=== PATIENT | male | born 1985 | race Caucasian/White ===

== ENCOUNTER 2016-06-23 19:15 | Emergency (ER) | payer OTHER ==
--- NOTE | 2016-06-23 19:26 | PDOC ---
History of Present Illness - General History Source: Patient Exam Limitations: No Limitations - History of Present Illness Initial Comments: 06/23/16 19:32 The patient is a 30 year old male, with no significant past medical history who presents to the emergency department with left first digit numbness/tingling for about a week. He reports today developing sharp pain going down his 1st digit that has been constant throughout the entire day. The patient reports being arrested on 06/13, and being put into handcuff. He reports just after his release becoming symptomatic, having constant numbness/tingling in his 1st left digit. He denies any recent fevers, chills, headache or dizziness. He denies any recent nausea, vomit, diarrhea or constipation. Allergies: NKA Past surgical history: None reported. <Luis Enrique Machuca - Last Filed: 06/23/16 19:36> <Vandana Pizarro - Last Filed: 06/24/16 02:10> - General Chief Complaint: Head/Neck problem Stated Complaint: L 1ST DIGIT NUMBNESS S/P HAND CUFFS Past History <Luis Enrique Machuca - Last Filed: 06/23/16 19:36> - Psycho/Social/Smoking Cessation Hx Anxiety: No Suicidal Ideation: No Smoking History: Unknown if ever smoked Have you smoked in the past 12 months: No Number of Cigarettes Smoked Daily: 0 Information on smoking cessation initiated: No Hx Alcohol Use: No Drug/Substance Use Hx: No Substance Use Type: None <Vandana Pizarro - Last Filed: 06/24/16 02:10> - Past Medical History Allergies/Adverse Reactions: Allergies Allergy/AdvReac Type Severity Reaction Status Date / Time No Known Allergies Allergy Unverified 06/23/16 19:25 Home Medications: Ambulatory Orders NK [No Known Home Medication] 06/23/16 Review of Systems - Review of Systems Able to Perform ROS?: Yes Comments:: 06/23/16 19:32 GENERAL/CONSTITUTIONAL: No fever or chills. No weakness. HEAD, EYES, EARS, NOSE AND THROAT: No change in vision. No ear pain or discharge. No sore throat. CARDIOVASCULAR: No chest pain or shortness of breath. RESPIRATORY: No cough, wheezing, or hemoptysis. GASTROINTESTINAL: No nausea, vomiting, diarrhea or constipation. GENITOURINARY: No dysuria, frequency, or change in urination. MUSCULOSKELETAL: +finger numbness. No joint or muscle swelling or pain. No neck or back pain. SKIN: No rash NEUROLOGIC: No headache, vertigo, loss of consciousness, or change in strength/ sensation. ENDOCRINE: No increased thirst. No abnormal weight change. HEMATOLOGIC/LYMPHATIC: No anemia, easy bleeding, or history of blood clots. ALLERGIC/IMMUNOLOGIC: No hives or skin allergy. <Luis Enrique Machuca - Last Filed: 06/23/16 19:36> *Physical Exam - Vital Signs Last Vital Signs Temp Pulse Resp BP Pulse Ox 97.8 F 88 14 118/76 100 06/23/16 19:18 06/23/16 19:18 06/23/16 19:18 06/23/16 19:18 06/23/16 19:18 <Luis Enrique Machuca - Last Filed: 06/23/16 19:36> - Vital Signs Last Vital Signs Temp Pulse Resp BP Pulse Ox 97.8 F 88 14 118/76 100 06/23/16 19:18 06/23/16 19:18 06/23/16 19:18 06/23/16 19:18 06/23/16 19:18 - Physical Exam Comments: GENERAL: Awake, alert, and fully oriented, in no acute distress HEAD: No signs of trauma EXTREMITIES: Normal range of motion, no edema. No clubbing or cyanosis. No cords, erythema, or tenderness. Cap refill <2 seconds. L hand with no bony tenderness to the bones of the wrist or hand. NEUROLOGICAL: Cranial nerves II through XII grossly intact. Normal speech, normal gait. Strength intact throughout. Decreased sensation to pinprick to the lateral surface of the L thumb. Motor intact. Sensation to the medial surface intact. SKIN: Warm, Dry, normal turgor, no rashes or lesions noted. <Vandana Pizarro - Last Filed: 06/24/16 02:10> Medical Decision Making - Medical Decision Making Pt noted to have dec sensation to the lateral part of the thumb. No signs of vascular compromise. Counseled him that this is likely temporary, and that it will take time to heal, as peripheral nerves heal slowly. There are no signs of bony injury. No imaging indicated at this time. F/u with PMD as needed. <Vandana Pizarro - Last Filed: 06/24/16 02:10> *DC/Admit/Observation/Transfer - Attestations Scribe Attestion: 06/23/16 19:35 Documentation prepared by Luis Enrique Mahcuca, acting as medical secretary receptionist for Vandana Pizarro MD. <Luis Enrique Machuca - Last Filed: 06/23/16 19:36> - Discharge Dispostion Admit: No <Vandana Pizarro - Last Filed: 06/24/16 02:10> Diagnosis at time of Disposition: Paresthesias in left hand - Discharge Dispostion Disposition: HOME Condition at time of disposition: Stable - Referrals Referrals: STAFF,NOT ON [Primary Care Provider] - - Patient Instructions Printed Discharge Instructions: DI for Numbness/tingling
[2016-06-23 19:33] VITALS: BP 118/76; PULSE 88; TEMP 97.8; BMI 40.6
== END 2016-06-23 19:42 | disposition home or self-care (01) ==
LOC: FER 19:15
DX: R20.9 Unspecified disturbances of skin sensation (principal); Y35.893A Legal intervention involving other specified means, suspect injured, initial encounter; Y93.9 Activity, unspecified; Y92.9 Unspecified place or not applicable
CPT/HCPCS: 99282-25

== ENCOUNTER 2016-12-08 16:14 | Inpatient (IN) | payer OTHER ==
[2016-12-08] MEDS ORDERED: SODIUM CHLORIDE 1,000 ML IV STA (16:21)
[2016-12-08] MEDS ORDERED: ONDANSETRON 4 MG/2 ML VIAL IVPB ONE (16:37)
[2016-12-08] MEDS ORDERED: morphine CARPU-JECT 4 MG/1 ML DISP.SYRIN IVPUSH ONE (16:37)
--- NOTE | 2016-12-08 16:38 | PDOC ---
History of Present Illness - History of Present Illness Initial Comments: 12/08/16 17:17 The patient is a 31 year old male, with a significant past medical history of pancreatitis, who presents to the emergency department complaining of epigastric pain that began 30 minutes ago. Patient states that he first started to experience back pain while lying down at work and then his epigastric pain developed soon thereafter. Patient describes his abdominal pain as a cramping/ squeezing feeling and rates his pain 7/10. Patient states he has had this pain before when he was admitted to the hospital for pancreatitis 2 years ago. Patient states associated symptoms of nausea and SOB. He denies any recent fevers, chills, headache or dizziness. He denies any recent vomit, diarrhea or constipation. He denies any recent chest pain. He denies any recent dysuria, frequency, urgency or hematuria. Denies past surgeries. Gall bladder intact Allergies: NKA Past surgical history: None reported. Social History: Nonsmoker. Social drinker. Denies recreational drug use. Primary Care Physician: Not on staff <Imelda Bello - Last Filed: 12/08/16 17:24> - General History Source: Patient Exam Limitations: No Limitations <Kelsy Dumont - Last Filed: 12/10/16 08:50> - General Chief Complaint: Pain, Acute Stated Complaint: UPPER ABD AND UPPER ABCK PAIN Time Seen by Provider: 12/08/16 16:20 Past History <Imelda Bello - Last Filed: 12/08/16 17:24> - Suicide/Smoking/Psychosocial Hx Smoking History: Unknown if ever smoked Have you smoked in the past 12 months: No Number of Cigarettes Smoked Daily: 0 Hx Alcohol Use: No Drug/Substance Use Hx: No Substance Use Type: None <Kelsy Dumont - Last Filed: 12/10/16 08:50> - Past Medical History Allergies/Adverse Reactions: Allergies Allergy/AdvReac Type Severity Reaction Status Date / Time No Known Allergies Allergy Unverified 06/23/16 19:25 Home Medications: Ambulatory Orders Non-Formulary 3 tab PO BID MDD 6 12/08/16 Review of Systems - Review of Systems Comments:: 12/08/16 17:18 GENERAL/CONSTITUTIONAL: No: fever, chills, weakness, loss of appetite. HEAD, EYES, EARS, NOSE AND THROAT: No: change in vision, ear pain, discharge, sore throat, throat swelling. CARDIOVASCULAR: No: chest pain, lightheadedness, palpitations, syncope RESPIRATORY: +shortness of breath No: cough,wheezing, hemoptysis, stridor. GASTROINTESTINAL: + epigastric tenderness to palpation, +nausea, +abdominal cramping, No: vomiting diarrhea, rectal bleeding, constipation. GENITOURINARY: No: dysuria, hematuria, frequency, urgency, flank pain. MUSCULOSKELETAL: + back pain. No: neck pain, joint pain, muscle swelling or pain SKIN AND BREASTS: No: lesions, pallor, rash or easy bruising. NEUROLOGIC: No: headache, vertigo, paresthesias, weakness ENDOCRINE: No: unexplained weight gain or loss HEMATOLOGIC/LYMPHATIC: No: anemia, easy bleeding, swelling nodes <Imelda Bello - Last Filed: 12/08/16 17:24> *Physical Exam - Physical Exam Comments: 12/08/16 17:24 GENERAL: The patient is in no acute distress. HEAD: Normal with no signs of trauma. EYES: PERRLA, EOMI, sclera anicteric, conjunctiva clear. ENT: Ears normal, nares patent, oropharynx clear without exudates. Moist mucous membranes. NECK: Normal range of motion, supple without lymphadenopathy, JVD, or masses. LUNGS: Breath sounds equal, clear to auscultation bilaterally. No wheezes, and no crackles. HEART:Regular rate and rhythm, normal S1 and S2 without murmur, rub or gallop. ABDOMEN: +Epigastric tenderness to palpation. No lower abdominal tenderness. No guarding, no rebound. EXTREMITIES: Normal range of motion, no edema. No clubbing or cyanosis. No erythema, or tenderness. NEUROLOGICAL: Cranial nerves II through XII grossly intact. Normal speech. No focal neurological deficits. MUSCULOSKELETAL: Back non-tender to palpation, no CVA tenderness SKIN: Warm, Dry, normal turgor, no rashes or lesions noted. <Imelda Bello - Last Filed: 12/08/16 17:24> ED Treatment Course - LABORATORY CBC & Chemistry Diagram: 12/08/16 16:33 12/08/16 16:33 - ADDITIONAL ORDERS Additional order review: 12/08/16 16:33 RBC 5.27 MCV 85.1 MCHC 34.6 RDW 12.0 MPV 9.1 Neutrophils % 47.6 Lymphocytes % 41.7 H Monocytes % 6.5 Eosinophils % 3.8 Basophils % 0.4 - Medications Given in the ED: ED Medications Discontinued Medications Generic Name Dose Route Start Last Admin Trade Name Alex PRN Reason Stop Dose Admin Morphine Sulfate 4 mg 12/08/16 16:37 12/08/16 16:55 Morphine Injection - IVPUSH 12/08/16 16:38 4 mg ONCE ONE Administration Ondansetron HCl 4 mg 12/08/16 16:37 12/08/16 16:55 Zofran Injection IVPB 12/08/16 16:38 4 mg ONCE ONE Administration <Imelda Bello - Last Filed: 12/08/16 17:24> - LABORATORY CBC & Chemistry Diagram: 12/10/16 07:00 12/10/16 07:00 <Kelsy Dumont - Last Filed: 12/10/16 08:50> Medical Decision Making - Medical Decision Making 12/08/16 16:48 THis patient is a 31 yo M presenting to the ER with upper abdominal pain HE states his symptoms began 30 minutes prior to arrival in the ER Symptoms began in his back Pain described as squeezing No vomiting No diarrhea Pain occurred while seated at his desk No fevers or chills Pt states he believes this to be pancreatitis because he had these symptoms in the past, 2 years ago He was told that he had pancreatitis He is not sure the cause of the pancreatitis (Was told that he needed to lose some weight) Pt denies heavy alcohol use, he denies being told that he has an issue with his gall bladder DD: Gastritis, Pancreatits, Biliary colic Will do: Labs, Hydrate Will re assess 12/08/16 17:10 Laboratory Tests 12/08/16 16:33 WBC 7.0 Hgb 15.5 Hct 44.8 Plt Count 256 Neutrophils % 47.6 Lymphocytes % 41.7 H 12/08/16 17:32 Laboratory Tests 12/08/16 16:33 Sodium 137 Potassium 4.1 Chloride 106 Carbon Dioxide 28 BUN 15 Creatinine 0.9 Random Glucose 103 Total Bilirubin 0.7 AST 46 H ALT 68 H Total Amylase 845 H* Lipase 1650 H Case reviewed with the hospitalist service Will: Admit Switch to LR Pt requesting more pain medications - will give Dilaudid Will send for CT scan to determine the etiology of his pancreatitis <Kelsy Dumont - Last Filed: 12/10/16 08:50> *DC/Admit/Observation/Transfer - Attestations Scribe Attestion: 12/08/16 17:25 Documentation prepared by Imelda Bello, acting as internist medical doctor md for Kelsy Dumont MD. <Imelda Bello - Last Filed: 12/08/16 17:24> - Discharge Dispostion Admit: Yes <Kelsy Dumont - Last Filed: 12/10/16 08:50> Diagnosis at time of Disposition: Pancreatitis Qualifiers: Chronicity: acute Pancreatitis type: unspecified pancreatitis type Acute pancreatitis complication: unspecified Qualified Code(s): K85.90 - Acute pancreatitis without necrosis or infection, unspecified - Discharge Dispostion Condition at time of disposition: Fair
[2016-12-08] MEDS ORDERED: morphine CARPU-JECT 4 MG/1 ML DISP.SYRIN ONE (16:50)
[2016-12-08] MEDS ORDERED: ONDANSETRON 4 MG/2 ML VIAL ONE (16:50)
[2016-12-08 16:59] LABS: ALBUMIN 4.1 g/dl (3.5-5.0); ALK PHOS 68 U/L (32-92); ANION GAP 3 (8-16); BILIRUBIN,TOTAL 0.7 mg/dl (0.2-1.0); CALCIUM 9.1 mg/dl (8.4-10.2); CO2 28 mmol/L (22-28); CREATININE 0.9 mg/dl (0.6-1.3); GLUCOSE,RANDOM 103 mg/dl (74-106); SGOT/AST 46 U/L (10-42); SGPT/ALT 68 U/L (10-40)
[2016-12-08 17:07] LABS: BASOPHIL 0.4 % (0-2.0); EOSINOPHIL 3.8 % (0-4.5); MCH 29.5 pg (25.7-33.7); MCHC 34.6 g/dl (32.0-35.9); MEAN CELL VOLUME 85.1 fl (80-96); MEAN PLT VOLUME 9.1 fl (7.5-11.1); NEUTROPHILS 47.6 % (42.8-82.8); PLATELET COUNT 256 K/MM3 (134-434)
[2016-12-08 17:23] LABS: AMYLASE 845 U/L (25-125)
[2016-12-08] MEDS ORDERED: HYDROmorphone HCL CARPU-JECT 1 MG/1 ML DISP.SYRIN IVPB ONE (17:26)
[2016-12-08] MEDS ORDERED: LACTATED RINGERS SOLUTION 1,000 ML IV SCH (17:30)
[2016-12-08] MEDS ORDERED: HYDROmorphone HCL CARPU-JECT 1 MG/1 ML DISP.SYRIN ONE (17:39)
[2016-12-08 19:06] VITALS: BMI 31.6
[2016-12-08] MEDS: ONDANSETRON 4 MG/2 ML VIAL IVPB PRN (21:32)
[2016-12-08] MEDS: HYDROmorphone HCL CARPU-JECT 1 MG/1 ML DISP.SYRIN IVPUSH PRN (21:32)
--- NOTE | 2016-12-08 21:41 | HP ---
CHIEF COMPLAINT: Abdominal pain PCP: none HISTORY OF PRESENT ILLNESS: This is a 31 year old male with a past medical history of pancreatitis 2 years ago presented to the emergency department with abdominal pain for 30 min [employer]. He reports the pain began in his mid/upper back and radiated to his epigastric region. The pain is similar to his pain during his previous episode of pancreatitis. He states that they were unable to find a definitive cause of the pancreatitis. He denies habitual or excessive alcohol use. ER course was notable for: (1) Lipase 1650 (2) WBC 7.0 (3) CT c/w pancreatitis Recent Travel: pt denies PAST MEDICAL HISTORY: pancreatitis PAST SURGICAL HISTORY: pt deneis Social History: Smoking: pt denies Alcohol: couple drinks a few times/week, last on Tuesday Drugs: pt denies Family History: mother, father 2 brothers, 4 sisters and 5 children all alive and well, no PMH Mat grandmother with HTN Allergies No Known Allergies Allergy (Unverified 06/23/16 19:25) HOME MEDICATIONS: 3 Medication Instructions Recorded Hydroxycut 3 tab PO BID MDD 6 12/08/16 REVIEW OF SYSTEMS CONSTITUTIONAL: Absent: fever, chills, diaphoresis, generalized weakness, malaise, loss of appetite, weight change HEENT: Absent: rhinorrhea, nasal congestion, throat pain, throat swelling, difficulty swallowing, mouth swelling, ear pain, eye pain, visual changes CARDIOVASCULAR: Absent: chest pain, syncope, palpitations, irregular heart rate, lightheadedness , peripheral edema RESPIRATORY: Absent: cough, shortness of breath, dyspnea with exertion, orthopnea, wheezing, stridor, hemoptysis GASTROINTESTINAL: abdominal pain Absent: abdominal distension, nausea, vomiting, diarrhea, constipation, melena, hematochezia GENITOURINARY: Absent: dysuria, frequency, urgency, hesitancy, hematuria, flank pain, genital pain MUSCULOSKELETAL: Absent: myalgia, arthralgia, joint swelling, back pain, neck pain SKIN: Absent: rash, itching, pallor HEMATOLOGIC/IMMUNOLOGIC: Absent: easy bleeding, easy bruising, lymphadenopathy, frequent infections ENDOCRINE: Absent: unexplained weight gain, unexplained weight loss, heat intolerance, cold intolerance NEUROLOGIC: Absent: headache, focal weakness or paresthesias, dizziness, unsteady gait, seizure, mental status changes, bladder or bowel incontinence PSYCHIATRIC: Absent: anxiety, depression, suicidal or homicidal ideation, hallucinations. PHYSICAL EXAMINATION Vital Signs - 24 hr 3 12/08/16 12/08/16 12/08/16 18:48 19:00 21:00 Temperature 97.9 F 97.5 F L Pulse Rate 65 68 Respiratory 17 17 17 Rate Blood Pressure 114/60 114/60 O2 Sat by Pulse 100 100 Oximetry (%) GENERAL: Awake, alert, and fully oriented, in no acute distress. HEAD: Normal with no signs of trauma. EYES: Pupils equal, round and reactive to light, extraocular movements intact, sclera anicteric, conjunctiva clear. No lid lag. EARS, NOSE, THROAT: Ears normal, nares patent, oropharynx clear without exudates. Moist mucous membranes. NECK: Normal range of motion, supple without lymphadenopathy, JVD, or masses. LUNGS: Breath sounds equal, clear to auscultation bilaterally. No wheezes, and no crackles. No accessory muscle use. HEART: Regular rate and rhythm, normal S1 and S2 without murmur, rub or gallop. ABDOMEN: Soft, not distended, normoactive bowel sounds, no guarding, no rebound , no masses. No hepatomegaly or splenomegaly. Tender to palpation epigastric MUSCULOSKELETAL: Normal range of motion at all joints. No bony deformities or tenderness. No CVA tenderness. UPPER EXTREMITIES: 2+ pulses, warm, well-perfused. No cyanosis. No clubbing. No peripheral edema. LOWER EXTREMITIES: 2+ pulses, warm, well-perfused. No calf tenderness. No peripheral edema. NEUROLOGICAL: Cranial nerves II-XII intact. Normal speech. Normal gait. PSYCHIATRIC: Cooperative. Good eye contact. Appropriate mood and affect. SKIN: Warm, dry, normal turgor, no rashes or lesions noted, normal capillary refill. Laboratory Results - last 24 hr 3 12/08/16 12/08/16 16:33 16:33 WBC 7.0 RBC 5.27 Hgb 15.5 Hct 44.8 MCV 85.1 MCH 29.5 MCHC 34.6 RDW 12.0 Plt Count 256 MPV 9.1 Neutrophils % 47.6 Lymphocytes % 41.7 H Monocytes % 6.5 Eosinophils % 3.8 Basophils % 0.4 Sodium 137 Potassium 4.1 Chloride 106 Carbon Dioxide 28 Anion Gap 3 L BUN 15 Creatinine 0.9 Creat Clearance w eGFR > 60 Random Glucose 103 Calcium 9.1 Total Bilirubin 0.7 AST 46 H ALT 68 H Alkaline Phosphatase 68 Total Protein 7.0 Albumin 4.1 Total Amylase 845 H* Lipase 1650 H Radiology Results Abdomen and pelvic CT (with contrast) Clinical information: pancreatitis Multiplanar imaging was performed following the intravenous administration of nonionic contrast. Oral contrast was not administered. No prior imaging studies are available at this facility for direct comparison. Peripancreatic edema and fluid accumulation is noted consistent with known acute pancreatitis. There is also associated mild concentric edema and fluid accumulation surrounding the second portion of duodenal sweep. The main pancreatic duct appears slightly dilated measuring 0.3 cm at the level of the body and 0.2 cm within the tail. No obvious ductal dilatation is noted in the region of the pancreatic head. There is no obvious radiopaque intraductal calcification. No biliary tract dilatation is visualized. There is a possible subtle 1 cm cyst within the pancreatic tail (transaxial images 49 - 51). No CT evidence of pancreatic necrosis. The portal venous system and splenic vein appear patent. There is no evidence of pneumoperitoneum, free intraperitoneal fluid or bowel obstruction. Diffuse fatty infiltration of the liver is noted. The spleen appears borderline in size. No focal splenic pathology is seen. The gallbladder, adrenal glands and kidneys demonstrate no definite abnormality. There is no aortic aneurysm. The appendix appears unremarkable. No gross bowel pathology is noted. There is no discrete lymphadenopathy. There is no definite pelvic abnormality. Minimal left basilar discoid atelectasis. IMPRESSION: Acute pancreatitis is identified as discussed above. No CT evidence of pancreatic necrosis. There is apparent slight nonspecific dilatation of the main pancreatic duct at the level of the body and tail. A possible subtle 1 cm pancreatic tail cyst is noted. Correlation with contrast-enhanced MRI is suggested. There is no CT evidence of biliary tract pathology. Diffuse hepatic steatosis is seen. Reported By: Darion Buckley MD 12/08/16 194 Chest portable one view Clinical information: pre-admission exam No discrete infiltrate or pleural effusion is identified. The heart, dayami and mediastinum demonstrate no obvious abnormality. Impression: No definite radiographic abnormality is seen. Reported By: Darion Buckley MD 12/08/161923 ASSESSMENT/PLAN: 31yM with PMH pancreatitis presented to the ED with epigastric pain. He is being admitted for pancreatitis. Pancreatitis - NPO - surgical consult if no improvement - consider sono for further evaluation of biliary tree DVT PPX - Pt fully ambulatory, Age less than 50, risk low; chemoprophylaxis deferred FEN - LR @125cc/hr - BMP in am - NPO Dispo: Pt currently requires inpatient management of his emergent condition and expected LOS is greater than 2 MN. Visit type - Emergency Visit Emergency Visit: Yes ED Registration Date: 12/08/16 Care time: The patient presented to the Emergency Department on the above date and was hospitalized for further evaluation of their emergent condition. - New Patient This patient is new to me today: Yes Date on this admission: 12/08/16 - Critical Care Critical Care patient: No
[2016-12-09] MEDS: HYDROmorphone HCL CARPU-JECT 1 MG/1 ML DISP.SYRIN IVPUSH PRN ×5 (01:34→21:31)
[2016-12-09] MEDS: ONDANSETRON 4 MG/2 ML VIAL IVPB PRN (02:41)
[2016-12-09 09:20] LABS: EOSINOPHIL 1.1 % (0-4.5); MCH 29.3 pg (25.7-33.7); MCHC 33.6 g/dl (32.0-35.9); MEAN CELL VOLUME 87.1 fl (80-96); MEAN PLT VOLUME 9.1 fl (7.5-11.1); NEUTROPHILS 72.3 % (42.8-82.8); PLATELET COUNT 269 K/MM3 (134-434); RDW 11.9 % (11.9-15.9); WHITE BLOOD COUNT 7.7 K/mm3 (4.0-10.8)
[2016-12-09 09:39] LABS: ALBUMIN 3.6 g/dl (3.5-5.0); ALK PHOS 58 U/L (32-92); ANION GAP 5 (8-16); BILIRUBIN,TOTAL 0.6 mg/dl (0.2-1.0); CALCIUM 8.9 mg/dl (8.4-10.2); CO2 27 mmol/L (22-28); CREATININE 0.8 mg/dl (0.6-1.3); GLUCOSE,RANDOM 102 mg/dl (74-106); MAGNESIUM 1.8 mg/dL (1.8-2.4); PHOSPHOROUS 3.8 mg/dl (2.5-4.6); SGOT/AST 28 U/L (10-42); SGPT/ALT 53 U/L (10-40); TOT PROT 6.4 g/dl (6.4-8.3)
[2016-12-09 10:54] LABS: AMYLASE 256 U/L (25-125)
--- NOTE | 2016-12-09 12:32 | PN ---
Physical Exam: SUBJECTIVE: Patient seen and examined, reports an improvement of abdominal pain denies any nausea OBJECTIVE: patient is a 31 year old male with a past medical history of pancreatitis 2 years ago. patient was admitted from the emergency department for pancreatitis. Vital Signs Period Temp Pulse Resp BP Sys/Schwartz Pulse Ox Last 24 Hr 97.5 F-98.3 F 65-71 17-20 105-115/59-65 97-100 GENERAL: The patient is awake, alert, and fully oriented, in no acute distress. HEAD: Normal with no signs of trauma. EYES: PERRL, extraocular movements intact, sclera anicteric, conjunctiva clear. No ptosis. ENT: Ears normal, nares patent, oropharynx clear without exudates, moist mucous membranes. NECK: Trachea midline, full range of motion, supple. LUNGS: Breath sounds equal, clear to auscultation bilaterally, no wheezes, no crackles, no accessory muscle use. HEART: Regular rate and rhythm, S1, S2 without murmur, rub or gallop. ABDOMEN: Soft, mild epigastric tenderness, , nondistended, normoactive bowel sounds, no guarding, no rebound, no hepatosplenomegaly, no masses. EXTREMITIES: 2+ pulses, warm, well-perfused, no edema. NEUROLOGICAL: Cranial nerves II through XII grossly intact. Normal speech, gait not observed. PSYCH: Normal mood, normal affect. SKIN: Warm, dry, normal turgor, no rashes or lesions noted Laboratory Results - last 24 hr 12/09/16 12/09/16 12/09/16 07:00 07:00 10:41 WBC 7.7 RBC 5.06 Hgb 14.8 Hct 44.1 MCV 87.1 MCH 29.3 MCHC 33.6 RDW 11.9 Plt Count 269 MPV 9.1 Neutrophils % 72.3 D Lymphocytes % 22.7 D Monocytes % 3.9 Eosinophils % 1.1 Basophils % 0.0 Sodium 135 L Potassium 4.2 Chloride 103 Carbon Dioxide 27 Anion Gap 5 L BUN 10 D Creatinine 0.8 Creat Clearance w eGFR > 60 Random Glucose 102 Calcium 8.9 Phosphorus 3.8 Magnesium 1.8 Total Bilirubin 0.6 AST 28 D ALT 53 H D Alkaline Phosphatase 58 Total Protein 6.4 Albumin 3.6 Triglycerides 64 Total Amylase 256 H D Lipase 179 H Active Medications Generic Name Dose Route Start Last Admin Trade Name Freq PRN Reason Stop Dose Admin Hydromorphone HCl 1 mg 12/08/16 17:51 12/09/16 10:10 Dilaudid Injection - IVPUSH 1 mg Q4H PRN Administration PAIN Lactated Ringer's 1,000 mls @ 125 mls/hr 12/08/16 17:30 12/08/16 17:45 Lactated Ringers Solution IV 125 mls/hr ASDIR AMELIE Administration Ondansetron HCl 4 mg 12/08/16 17:51 12/09/16 02:41 Zofran Injection IVPB 4 mg Q6H PRN Administration NAUSEA Radiology Results Abdomen and pelvic CT (with contrast) IMPRESSION: Acute pancreatitis is identified as discussed above. No CT evidence of pancreatic necrosis. There is apparent slight nonspecific dilatation of the main pancreatic duct at the level of the body and tail. A possible subtle 1 cm pancreatic tail cyst is noted. Correlation with contrast-enhanced MRI is suggested. There is no CT evidence of biliary tract pathology. Diffuse hepatic steatosis is seen. Reported By: Darion Buckley MD 12/08/161940 Chest portable one view Clinical information:No discrete infiltrate or pleural effusion is identified. The heart, dayami and mediastinum demonstrate no obvious abnormality. Impression: No definite radiographic abnormality is seen. Reported By: Darion Buckley MD 12/08/161923 ASSESSMENT/PLAN: 1) Pancreatitis - amylase lipase is trending downward - start clear liquid - appreciate GI input DVT PPX - Pt fully ambulatory, Age less than 50, risk low; chemoprophylaxis deferred FEN - LR @ 75cc/hr - BMP in am - full liquids Dispo: Pt currently requires inpatient management of his emergent condition and expected LOS is greater than 2 MN. Visit type - Emergency Visit Emergency Visit: Yes ED Registration Date: 12/08/16 Care time: The patient presented to the Emergency Department on the above date and was hospitalized for further evaluation of their emergent condition. - New Patient This patient is new to me today: Yes Date on this admission: 12/09/16 - Critical Care Critical Care patient: No - Discharge Referral Referred to [facility] Med [facility] No
[2016-12-09] MEDS ORDERED: LACTATED RINGERS SOLUTION 1,000 ML IV SCH (14:36)
[2016-12-10 06:02] VITALS: BP 109/57; PULSE 69; TEMP 99.4
[2016-12-10] MEDS: HYDROmorphone HCL CARPU-JECT 1 MG/1 ML DISP.SYRIN IVPUSH PRN (06:47)
[2016-12-10 08:09] LABS: BASOPHIL 0.1 % (0-2.0); EOSINOPHIL 7.5 % (0-4.5); MCH 28.9 pg (25.7-33.7); MCHC 33.2 g/dl (32.0-35.9); MEAN PLT VOLUME 9.2 fl (7.5-11.1); NEUTROPHILS 54.2 % (42.8-82.8); PLATELET COUNT 231 K/MM3 (134-434); RDW 11.8 % (11.9-15.9); WHITE BLOOD COUNT 6.4 K/mm3 (4.0-10.8)
[2016-12-10 08:31] LABS: ALBUMIN 3.4 g/dl (3.5-5.0); ALK PHOS 57 U/L (32-92); AMYLASE 110 U/L (25-125); ANION GAP 6 (8-16); BILIRUBIN,TOTAL 1.1 mg/dl (0.2-1.0); CALCIUM 8.8 mg/dl (8.4-10.2); CO2 28 mmol/L (22-28); CREATININE 0.7 mg/dl (0.6-1.3); GLUCOSE,RANDOM 92 mg/dl (74-106); MAGNESIUM 1.8 mg/dL (1.8-2.4); PHOSPHOROUS 2.6 mg/dl (2.5-4.6); SGOT/AST 23 U/L (10-42); SGPT/ALT 45 U/L (10-40); TOT PROT 6.1 g/dl (6.4-8.3)
[2016-12-10 09:28] LABS: CHOLESTEROL 122 mg/dl
--- NOTE | 2016-12-10 12:55 | DS ---
Physical Exam: SUBJECTIVE: Patient seen and examined OBJECTIVE: Vital Signs Period Temp Pulse Resp BP Sys/Schwartz Pulse Ox Last 24 Hr 98.4 F-99.4 F 64-78 18-20 103-117/56-60 93-99 PHYSICAL EXAM GENERAL: The patient is awake, alert, and fully oriented, in no acute distress. HEAD: Normal with no signs of trauma. EYES: PERRL, extraocular movements intact, sclera anicteric, conjunctiva clear. ENT: Ears normal, nares patent, oropharynx clear without exudates, moist mucous membranes. NECK: Trachea midline, full range of motion, supple. LUNGS: Breath sounds equal, clear to auscultation bilaterally, no wheezes, no crackles, no accessory muscle use. HEART: Regular rate and rhythm, S1, S2 without murmur, rub or gallop. ABDOMEN: Soft, nontender, nondistended, normoactive bowel sounds, no guarding, no rebound, no hepatosplenomegaly, no masses. EXTREMITIES: 2+ pulses, warm, well-perfused, no edema. NEUROLOGICAL: Cranial nerves II through XII grossly intact. Normal speech, gait not observed. PSYCH: Normal mood, normal affect. SKIN: Warm, dry, normal turgor, no rashes or lesions noted. LABS Laboratory Results - last 24 hr 12/10/16 12/10/16 12/10/16 07:00 07:00 09:12 WBC 6.4 RBC 4.98 Hgb 14.4 Hct 43.3 MCV 87.0 MCH 28.9 MCHC 33.2 RDW 11.8 L Plt Count 231 MPV 9.2 Neutrophils % 54.2 D Lymphocytes % 32.6 D Monocytes % 5.6 Eosinophils % 7.5 H D Basophils % 0.1 D Sodium 137 Potassium 3.8 Chloride 103 Carbon Dioxide 28 Anion Gap 6 L BUN 8 Creatinine 0.7 Creat Clearance w eGFR > 60 Random Glucose 92 Calcium 8.8 Phosphorus 2.6 D Magnesium 1.8 Total Bilirubin 1.1 H D AST 23 ALT 45 H Alkaline Phosphatase 57 Total Protein 6.1 L Albumin 3.4 L Triglycerides 75 Cholesterol 122 Total LDL Cholesterol 66 HDL Cholesterol 41 Total Amylase 110 D Lipase 51 HOSPITAL COURSE: Date of Admission:12/08/16 Date of Discharge: 12/10/16 Discharge Summary Reason For Visit: PANCREATITIS Current Active Problems Pancreatitis (Acute) Condition: Fair - Home Medications Comprehensive Discharge Medication List: Ambulatory Orders Non-Formulary 3 tab PO BID MDD 6 12/08/16 - Discharge Referral Referred to [facility] No
== END 2016-12-10 13:22 | disposition home or self-care (01) | DRG 282 ==
LOC: FER 16:14 → FM/S 18:07
PROVIDERS: ADMIT Internal Medicine; ATTEND Nurse Practitioner Family
DX: K85.90 Acute pancreatitis without necrosis or infection, unspecified (principal); K86.2 Cyst of pancreas
CPT/HCPCS: 36415; 71010-TC; 74177-TC; 80053; 80061; 82150; 83690; 83735; 84100; 84478; 85025; 99283-25

== ENCOUNTER 2017-05-17 02:49 | Inpatient (IN) | payer OTHER ==
[2017-05-17] MEDS ORDERED: SODIUM CHLORIDE 1,000 ML IV STA ×4 (02:53→07:06)
[2017-05-17] MEDS ORDERED: ONDANSETRON 4 MG/2 ML VIAL IVPUSH ONE ×2 (02:53→10:00)
--- NOTE | 2017-05-17 02:53 | PDOC ---
History of Present Illness - General Chief Complaint: Pain, Acute Stated Complaint: UPPER ABDOMINAL PAIN Time Seen by Provider: 05/17/17 02:51 - History of Present Illness Initial Comments: 05/17/17 03:03 This 31-year-old man with a history of pancreatitis (2 previous episodes, most recently in November, ) presents with a history of epigastric pain radiating to the mid back awakening him from sleep 45 minutes prior to presentation. Soon after onset of pain, patient vomited partially digested food eaten at approximately 9 PM. Since then, pain and nausea has persisted. These symptoms are very similar to those experienced during previous episodes of acute pancreatitis. No recent febrile illness. No recent intake of alcohol or high-fat diet. According to patient, etiology of previous episodes of pancreatitis was never ascertained with no hx of gallbladder pathology/ hyperlipidemia/alcohol abuse. Patient states that after his first episode of pancreatitis, he lost weight. Subsequently he had no further episodes until gaining 40-50 pounds when he moved here last year, then he had second bout. Social drinker; states that he has not had any alcohol in at least one month non-smoker Patient drinks multiple portions of caffeinated soft drinks daily. States that he knows he does not drink enough water. On no medications no known allergies Past History - Past Medical History Allergies/Adverse Reactions: Allergies Allergy/AdvReac Type Severity Reaction Status Date / Time No Known Allergies Allergy Verified 05/17/17 02:50 Anemia: No Asthma: No Cancer: No Cardiac Disorders: No CVA: No COPD: No CHF: No Dementia: No GI Disorders: Yes (PANCREATITIS) Disorders: No HTN: No Hypercholesterolemia: No Liver Disease: No Seizures: No Thyroid Disease: No - Surgical History Abdominal Surgery: No Appendectomy: No Cardiac Surgery: No Cholecystectomy: No Lung Surgery: No Neurologic Surgery: No Orthopedic Surgery: No - Suicide/Smoking/Psychosocial Hx Smoking History: Unknown if ever smoked Have you smoked in the past 12 months: No Number of Cigarettes Smoked Daily: 0 Hx Alcohol Use: No Drug/Substance Use Hx: No Substance Use Type: None Hx Substance Use Treatment: No Review of Systems - Review of Systems Able to Perform ROS?: Yes Comments:: 12 point review of systems is negative except for what is noted in the history of present illness *Physical Exam - Physical Exam Comments: GENERAL: Adult male, alert and oriented 3 in marked distress secondary to epigastric pain/nausea HEAD: Normal with no signs of trauma. EYES: PERRLA, EOMI, sclera anicteric, conjunctiva clear. ENT: Ears normal, nares patent, oropharynx clear without exudates. Dry mucous membranes. NECK: Normal range of motion, supple without lymphadenopathy, JVD, or masses. LUNGS: Breath sounds equal, clear to auscultation bilaterally. No wheezes, and no crackles. HEART:Regular rate and rhythm, normal S1 and S2 without murmur, rub or gallop. ABDOMEN:.normal bowel sounds; moderate epigastric and strength EXTREMITIES: Normal range of motion, no edema. No clubbing or cyanosis. No erythema, or tenderness. NEUROLOGICAL: Cranial nerves II through XII grossly intact. Normal speech. No focal neurological deficits. MUSCULOSKELETAL: Back non-tender to palpation, no CVA tenderness SKIN: Warm, Dry, normal turgor, no rashes or lesions noted. ED Treatment Course - LABORATORY CBC & Chemistry Diagram: 05/18/17 05:25 05/18/17 05:25 Medical Decision Making - Medical Decision Making 05/17/17 04:42 31-year-old man with history of acute pancreatitis the past but no other serious medical problems presents with symptoms typical of his previous episodes AP. Patient was given 1 L normal saline, 4 mg Zofran IV, 1 mg Dilaudid IV Laboratory evaluation notable for normal CBC; electrolytes, BUN/creatinine, transaminases are normal. Lipase 5757. Patient reports significant improvement in pain and nausea with medications. Abdominal/pelvic CT with IV contrast performed. Patient complaining of recurrence of epigastric pain; repeat blood pressure 88/ 48 Additional liter of normal saline given IV: 90/44 Patient reports improvement in pain (although no pain medications administered). Case discussed with Dr. Post [facility] service. Because of patient's hypotension, ICU monitoring required Awaiting preliminary interpretation of abdominal/pelvic CT by Imaging rehabilitation nurse 05/17/17 06:34 Third liter of normal saline IV administered: Repeat blood pressure 101/56 Preliminary interpretation of abdominal/pelvic CT by Imaging rehabilitation nurse: Very minimal peripancreatic fat stranding. 1.8 cm cystic structure in the pancreatic tail. Minimally dilated pancreatic duct 3-4 mm faint central mesenteric fat haziness but no evidence of necrosis 12-lead electrocardiogram is performed and interpreted by me: Normal sinus rhythm at 77 bpm; intervals, wave forms and axis are all normal 05/17/17 06:51 case discussed with of ICU staff: Patient accepted for admission into the ICU. 05/17/17 07:10 Care of this patient signed out to Dr. Dumont at end of shift. *DC/Admit/Observation/Transfer Diagnosis at time of Disposition: Acute pancreatitis Qualifiers: Pancreatitis type: other Acute pancreatitis complication: no infection or necrosis Qualified Code(s): K85.80 - Other acute pancreatitis without necrosis or infection - Discharge Dispostion Disposition: HOME Condition at time of disposition: Improved Admit: Yes - Referrals - Patient Instructions - Post Discharge Activity
[2017-05-17] MEDS ORDERED: HYDROmorphone HCL CARPU-JECT 1 MG/1 ML DISP.SYRIN IVPUSH ONE ×2 (02:58→07:09)
[2017-05-17] MEDS ORDERED: ONDANSETRON 4 MG/2 ML VIAL ONE (03:02)
[2017-05-17] MEDS ORDERED: HYDROmorphone HCL CARPU-JECT 1 MG/1 ML DISP.SYRIN ONE ×2 (03:02→07:11)
[2017-05-17 03:28] LABS: BASO % 0.7 % (0-2.0); EOS % 2.8 % (0-4.5); HEMATOCRIT 45.2 % (35.4-49); HEMOGLOBIN 15.4 GM/dL (11.7-16.9); LYMPH % 45.8 % (8-40); MCH 29.3 pg (25.7-33.7); MCHC 34.1 g/dl (32.0-35.9); MEAN PLT VOLUME 8.7 fl (7.5-11.1); MONO % 5.9 % (3.8-10.2); NEUT % 44.8 % (42.8-82.8); PLATELET COUNT 292 K/MM3 (134-434); RBC 5.25 M/mm3 (4.00-5.60); RDW 12.8 % (11.9-15.9); WHITE BLOOD COUNT 8.6 K/mm3 (4.0-10.0)
[2017-05-17 03:57] LABS: ALBUMIN 3.8 g/dl (3.4-5.0); ANION GAP 11 (8-16); BILIRUBIN,TOTAL 0.6 mg/dL (0.2-1.0); BLOOD UREA NITROGEN 16 mg/dL (7-18); CALCIUM 9.2 mg/dL (8.5-10.1); CHLORIDE 100 mmol/L (98-107); CO2 28 mmol/L (21-32); CREATININE 1.1 mg/dL (0.7-1.3); GLUCOSE,RANDOM 94 mg/dL (74-106); POTASSIUM 3.8 mmol/L (3.5-5.1); SGOT/AST 22 U/L (15-37); SGPT/ALT 49 U/L (12-78); SODIUM 139 mmol/L (136-145); TOT PROT 7.8 g/dl (6.4-8.2)
[2017-05-17 03:58] LABS: ALK PHOS 93 U/L (45-117)
[2017-05-17 04:10] LABS: LIPASE 5757 U/L (73-393)
[2017-05-17 04:48] LABS: INR 1.09 (0.82-1.09); PROTHROMBIN TIME (PATIENT) 12.3 SEC (9.98-11.88)
[2017-05-17 07:57] LABS: URINE APPEARANCE Clear; URINE BILIRUBIN Negative (NEGATIVE); URINE BLOOD Negative (NEGATIVE); URINE GLUCOSE (UA) Negative (NEGATIVE); URINE KETONE Negative (NEGATIVE); URINE LEUK ESTERASE Negative (NEGATIVE); URINE NITRITE Negative (NEGATIVE); URINE PROTEIN Negative (NEGATIVE); URINE UROBILINOGEN 0.2 (0.2-1.0)
[2017-05-17 07:58] LABS: URINE COLOR YELLOW
--- NOTE | 2017-05-17 09:41 | CONSULT ---
Consult Consult Specialty:: ICU - History of Present Illness History of Present Illness: This 31 YOM with h/o pancreatitis (2 previous episodes, most recently in November 2016 ) who presented to the [facility] with epigastric pain radiating straight backward to the mid-back, nausea, and vomiting all onset this morning. His last PO intake was 9 pm last night. He notes that this feels the same as his two prior pancreatitis episodes. He drinks EtOH socially and has not had any in about a month. He denies fatty food intake recently, and denies h/o gallbladder stones or other pathology. He has gained about 50 lbs in the past year and attributes the two episodes in the last 6 months to this fact. He arrives to the ICU nauseated despite dosing with Zofran at the [facility]. DFED Course Initially VS wnl, uncomfortable, Given Dilaudid 1 mg, Zofran 4 mg IVPUSH, 4 liters total NS. Lipase 5757, amylase 415, otherwise labs wnl. Had CXR showed no acute process. Had EKG showing NSR rate of 77, normal axis and intervals. Abdomen/pelvis CT with contrast done and read as below. Increased pain, 0.5 mg more Dilaudid given. Had mild hypotension minimum 88/48. Transferred to [facility] ICU for further care. Preliminary interpretation of abdominal/pelvic CT by Imaging grinder carbon plant: Very minimal peripancreatic fat stranding. 1.8 cm cystic structure in the pancreatic tail. Minimally dilated pancreatic duct 3-4 mm faint central mesenteric fat haziness but no evidence of necrosis. - History Source History Provided By: Patient, Medical Record Limitations to Obtaining History: No Limitations - Alcohol/Substance Use Hx Alcohol Use: No - Smoking History Smoking history: Unknown if ever smoked Have you smoked in the past 12 months: No Aproximately how many cigarettes per day: 0 Home Medications - Allergies Allergies/Adverse Reactions: Allergies Allergy/AdvReac Type Severity Reaction Status Date / Time No Known Allergies Allergy Verified 05/17/17 02:50 - Home Medications Home Medications: Ambulatory Orders NK [No Known Home Medication] 05/17/17 Family Disease History - Family Disease History Other Family History: no family history of malignancy or pancreatitis Review of Systems - Review of Systems Constitutional: denies: Chills, Fever, Night Sweats, Unintentional Wgt. Loss Eyes: denies: Blurred Vision, Double Vision, Recent Change in Vision HENT: denies: Difficult Swallowing, Nasal Congestion, Throat Pain Neck: denies: Lumps, Stiffness, Tenderness Cardiovascular: denies: Chest Pain, Edema, Palpitations, Shortness of Breath Respiratory: denies: Cough, SOB, Wheezing Gastrointestinal: reports: Abdominal Pain, Nausea, Vomiting. denies: Diarrhea, Rectal Bleeding, Vomiting Blood Genitourinary: denies: Burning, Dysuria, Testicular Pain, Testicular Swelling Musculoskeletal: reports: Back Pain. denies: Extremity Pain Integumentary: denies: Bruising, Change in Color, Erythema, Wound Neurological: denies: Change in LOC, Confusion, Dizziness, Headache, Syncope, Weakness Endocrine: denies: Excessive Sweating, Flushing Physical Exam Vital Signs: Vital Signs Temperature 98.3 F 05/17/17 06:32 Pulse Rate 80 05/17/17 07:48 Respiratory Rate 17 05/17/17 07:48 Blood Pressure 93/61 05/17/17 07:48 O2 Sat by Pulse Oximetry (%) 98 05/17/17 07:48 Constitutional: Yes: Well Nourished, Calm, Obese, Other (pleasant but uncomfortable appearing adult male laying on back, significant other at bedside) . No: Anxious, Diaphoresis Eyes: Yes: WNL, Conjunctiva Clear, EOM Intact. No: Sclera Icterus HENT: Yes: WNL, Atraumatic, Normocephalic. No: Hoarseness Neck: Yes: WNL, Supple, Trachea Midline. No: Lymphadenopathy, Tenderness Cardiovascular: Yes: WNL, Regular Rate and Rhythm. No: Murmur Respiratory: Yes: WNL, Regular, CTA Bilaterally Gastrointestinal: Yes: Normal Bowel Sounds, Soft, Abdomen, Obese, Tenderness, Epigastrium, Vomiting, Other (negative Bourgeois's sign, no RUQ tenderness, no tenderness to McBurney's point, slightly hard upper abdomen but not rigid). No : Distention, Palpable Mass, Pulsatile Mass ...Rectal Exam: Yes: WNL Renal/: Yes: WNL Breast(s): Yes: WNL Musculoskeletal: Yes: Back Pain Extremities: Yes: WNL. No: Calf Tenderness, Cold, Cyanosis, Delayed Capillary Refill, Erythema Integumentary: Yes: WNL, Other (No Sami or Erick-Gonzalez sign) Neurological: Yes: WNL, Alert, Oriented ...Motor Strength: WNL Psychiatric: Yes: WNL, Alert, Oriented Labs: CBC, BMP 05/17/17 02:49 05/17/17 02:49 Imaging - Results Chest X-ray: Report Reviewed, Image Reviewed, Other (no acute cardiopulmonary processes) Cat Scan: Report Reviewed, Image Reviewed (e/o mild pancreatitis, pancreatic cyst, no e/o gallbladder pathology), Other Ultrasound: Report Reviewed, Image Reviewed, Other (no e/o gallstones, cholecystitis, choledocholithiasis, or cholangitis. Hepatic steatosis.) EKG: Report Reviewed, Image Reviewed, Other (NSR, normal axis, normal intervals , no ST-T changes) Assessment/Plan 31 YOM with h/o prior pancreatitis of unknown etiology, who p/w epigastric pain and vomiting like his prior pancreatitis flares. GI #Pancreatitis, recurrent. [place] score 0, TRIBE II 2. Unknown etiology. Patient has no gallstones, sludge, cholecystitis, CBD dilatation, or other pathology visible on RUQ US this visit. On CT he does have mild peripancreatic fat stranding, also 1.8 cm pancreatic tail cyst (previously noted to be 1 cm in 11/2016). The patient never followed up with a GI doctor. -Pain control with morphine -Hydration with IVF -D5 NS at 200cc/hr -Zofran 8 mg Q8h PRN -NPO for now, will consider early re-feeding -GI consultation with Dr. Mike -Trend lipase -JANICE and IgG4 ordered -Lipid panel ordered #Morbid obesity, chronic worsening. -BMI 41.3 kg/m2 -72 lb weight gain since November 2016 -Counseled about healthy diet by primary team -HgA1c ordered to screen for DM -TSH ordered to r/o hypothyroidism CV #Hypotension, improving. Possibly d/t hypovolemia. S/P 4 liters NS from DFED. -IVF resuscitation -Monitor FEN -NPO for now -Trend CMP, Mg, Phos PPX -DVT: HSQ -GI: None -PT: When able DISPO Further ICU care
[2017-05-17 10:08] LABS: COCAINE, UR NEGATIVE ng/ml (CUTOFF=300); URINE AMPHETAMINES NEGATIVE ng/ml (CUTOFF=500); URINE BARBITURATES NEGATIVE ng/ml (CUTOFF=200); URINE BENZODIAZEPINES NEGATIVE ng/ml (CUTOFF=200)
[2017-05-17] MEDS ORDERED: HYDROmorphone HCL CARPU-JECT 1 MG/1 ML DISP.SYRIN IVPB PRN (10:08)
[2017-05-17 10:09] LABS: METHADONE, UR NEGATIVE ng/ml (CUTOFF=300); OPIATES, URI POSITIVE ng/ml (CUTOFF=300); PHENCYCLIDINE,URINE NEGATIVE ng/ml (CUTOFF=25)
[2017-05-17] MEDS ORDERED: SODIUM CHLORIDE 1,000 ML IV SCH ×2 (10:15→11:19)
[2017-05-17 10:38] LABS: MAGNESIUM 1.7 mg/dL (1.8-2.4); PHOSPHOROUS 3.1 mg/dL (2.5-4.9)
[2017-05-17 10:50] LABS: CHOLESTEROL 103 mg/dL (50-200); HDL CHOLESTEROL 42 mg/dl (29-89); TRIGLYCERIDES 69 mg/dL (35-160)
[2017-05-17] MEDS ORDERED: ONDANSETRON 4 MG/2 ML VIAL IVPB PRN (10:51)
[2017-05-17 10:53] LABS: LDL CHOLESTEROL (ONLY SJRH) 62 mg/dL (5-100)
--- NOTE | 2017-05-17 11:27 | HP ---
<Elenita Lucas - Last Filed: 05/17/17 13:22> CHIEF COMPLAINT: abdominal pain PCP: Dr. Santiago in [place] HISTORY OF PRESENT ILLNESS: This is a 31 year old male with a PMH of pancreatitis (two episodes, last one in November of 2016) who was transferred from [facility]. He presented to emergency room last night after he woke up at 1 AM in severe upper abdominal pain. It is located in epigastric area, radiating to the back. It was 10/10 in severity, constant, no aggravating/alleviating factors. He also reports associated nausea. The pt last meal was around PM. The pt was admitted to ICU for hypotension associated with acute pancreatitis. His initial BP was 88 /48. His first episode of pancreatitis was treated in [place]. He was told then, that he has a cyst and was treated with antibiotics. The pt admitted to gaining 50 lbs over the last year by not following healthy, balanced diet. He denies having a history of gallstones, autoimmune disease, infections, chronic diseases. He denies fever, chills, diarrhea, chest pain, SOB, cough. He denies taking any medications. ER course was notable for: (1)NS (2)lipase 5757 amylase 415 (3)ZofranHannalid PAST MEDICAL HISTORY: as above PAST SURGICAL HISTORY: none Social History: Smoking:no Alcohol:occasionally, didn't drink in the past month Drugs: Family History: Mother: healthy Father: aortic valve replacement, alcoholism, smoker children and siblings healthy Allergies No Known Allergies Allergy (Verified 05/17/17 02:50) HOME MEDICATIONS: Home Medications Medication Instructions Recorded NK [No Known Home Medication] 05/17/17 REVIEW OF SYSTEMS CONSTITUTIONAL: weight gain Absent: fever, chills, diaphoresis, generalized weakness, malaise, loss of appetite, HEENT: Absent: rhinorrhea, nasal congestion, throat pain, throat swelling, difficulty swallowing CARDIOVASCULAR: Absent: chest pain, syncope, palpitations, irregular heart rate, lightheadedness , peripheral edema RESPIRATORY: Absent: cough, shortness of breath, dyspnea with exertion, orthopnea, wheezing GASTROINTESTINAL: abdominal pain, nausea Absent:abdominal distension, vomiting, diarrhea, constipation, GENITOURINARY: Absent: dysuria, frequency, urgency, hesitancy MUSCULOSKELETAL: Absent: myalgia, arthralgia, joint swelling, back pain, neck pain SKIN: Absent: rash HEMATOLOGIC/IMMUNOLOGIC: Absent: easy bleeding, easy bruising ENDOCRINE: Absent: heat intolerance, cold intolerance NEUROLOGIC: Absent: headache, focal weakness or paresthesias, dizziness, PSYCHIATRIC: Absent: anxiety, depression PHYSICAL EXAMINATION Vital Signs - 24 hr 05/17/17 05/17/17 05/17/17 03:10 05:19 05:49 Temperature 98.4 F Pulse Rate 78 Pulse Rate [ 86 Right] Respiratory 16 16 Rate Blood Pressure 109/80 Blood Pressure 88/48 90/44 [Left] O2 Sat by Pulse 99 97 Oximetry (%) 05/17/17 05/17/17 05/17/17 05:57 06:17 06:32 Temperature 98.3 F Pulse Rate Pulse Rate [ 88 79 84 Right] Respiratory 16 16 16 Rate Blood Pressure Blood Pressure 87/55 90/51 101/56 [Left] O2 Sat by Pulse 100 98 99 Oximetry (%) 05/17/17 05/17/17 05/17/17 07:09 07:48 09:35 Temperature 98.2 F Pulse Rate 66 Pulse Rate [ 86 80 Right] Respiratory 17 20 Rate Blood Pressure 103/60 Blood Pressure 101/53 93/61 [Left] O2 Sat by Pulse 97 98 Oximetry (%) 05/17/17 10:14 Temperature Pulse Rate 75 Pulse Rate [ Right] Respiratory 14 Rate Blood Pressure 108/51 Blood Pressure [Left] O2 Sat by Pulse Oximetry (%) GENERAL: Awake, alert, and fully oriented, in no acute distress, lying in bed. HEAD: Normal with no signs of trauma. EYES: extraocular movements intact, sclera anicteric, conjunctiva clear. EARS, NOSE, THROAT: Ears normal, nares patent, oropharynx clear without exudates. Moist mucous membranes. NECK: Normal range of motion, supple without lymphadenopathy or masses. LUNGS: Breath sounds equal, clear to auscultation bilaterally. No wheezes, and no crackles. No accessory muscle use. HEART: Regular rate and rhythm, normal S1 and S2 without murmur, rub or gallop. ABDOMEN: Obese, soft, tender to palpation in epigastrium, normoactive bowel sounds, no guarding, no rebound, no masses. MUSCULOSKELETAL: Normal range of motion at all joints. No bony deformities or tenderness. No CVA tenderness. UPPER EXTREMITIES:warm, no peripheral edema. LOWER EXTREMITIES: 2+ pulses, warm, no peripheral edema. NEUROLOGICAL: Normal speech, no facial asymmetry, gait not observed. PSYCHIATRIC: Cooperative. Good eye contact. Appropriate mood and affect. SKIN: Warm, dry, normal turgor, no rashes or lesions noted. Laboratory Results - last 24 hr 05/17/17 05/17/17 05/17/17 02:49 02:49 02:49 WBC 8.6 RBC 5.25 Hgb 15.4 Hct 45.2 MCV 86.0 MCH 29.3 MCHC 34.1 RDW 12.8 Plt Count 292 MPV 8.7 Neutrophils % 44.8 Lymphocytes % 45.8 H Monocytes % 5.9 Eosinophils % 2.8 Basophils % 0.7 PT with INR INR Sodium 139 Potassium 3.8 Chloride 100 Carbon Dioxide 28 Anion Gap 11 BUN 16 Creatinine 1.1 Creat Clearance w eGFR > 60 Random Glucose 94 Calcium 9.2 Phosphorus Magnesium Total Bilirubin 0.6 AST 22 ALT 49 Alkaline Phosphatase 93 LD Total Total Protein 7.8 Albumin 3.8 Triglycerides Cholesterol Total LDL Cholesterol HDL Cholesterol Total Amylase 415 H Lipase 5757 H Urine Color Urine Appearance Urine pH Ur Specific [place] Urine Protein Urine Glucose (UA) Urine Ketones Urine Blood Urine Nitrite Urine Bilirubin Urine Urobilinogen Ur Leukocyte Esterase Opiates Screen Methadone Screen Barbiturate Screen Phencyclidine Screen Ur Amphetamines Screen MDMA (Ecstasy) Screen Benzodiazepines Screen Cocaine Screen U Marijuana (THC) Screen 05/17/17 05/17/17 05/17/17 03:00 07:00 07:00 WBC RBC Hgb Hct MCV MCH MCHC RDW Plt Count MPV Neutrophils % Lymphocytes % Monocytes % Eosinophils % Basophils % PT with INR 12.30 H INR 1.09 Sodium Potassium Chloride Carbon Dioxide Anion Gap BUN Creatinine Creat Clearance w eGFR Random Glucose Calcium Phosphorus Magnesium Total Bilirubin AST ALT Alkaline Phosphatase LD Total Total Protein Albumin Triglycerides Cholesterol Total LDL Cholesterol HDL Cholesterol Total Amylase Lipase Urine Color Yellow Urine Appearance Clear Urine pH 6.0 Ur Specific [place] 1.010 Urine Protein Negative Urine Glucose (UA) Negative Urine Ketones Negative Urine Blood Negative Urine Nitrite Negative Urine Bilirubin Negative Urine Urobilinogen 0.2 Ur Leukocyte Esterase Negative Opiates Screen Positive Methadone Screen Negative Barbiturate Screen Negative Phencyclidine Screen Negative Ur Amphetamines Screen Negative MDMA (Ecstasy) Screen Negative Benzodiazepines Screen Negative Cocaine Screen Negative U Marijuana (THC) Screen Positive 05/17/17 05/17/17 05/17/17 10:00 10:00 10:00 WBC RBC Hgb Hct MCV MCH MCHC RDW Plt Count MPV Neutrophils % Lymphocytes % Monocytes % Eosinophils % Basophils % PT with INR INR Sodium Potassium Chloride Carbon Dioxide Anion Gap BUN Creatinine Creat Clearance w eGFR Random Glucose Calcium Phosphorus 3.1 Magnesium 1.7 L Total Bilirubin AST ALT Alkaline Phosphatase LD Total 119 Total Protein Albumin Triglycerides Cancelled Cancelled 69 Cholesterol Cancelled 103 Total LDL Cholesterol Cancelled HDL Cholesterol Cancelled 42 Total Amylase Lipase Urine Color Urine Appearance Urine pH Ur Specific [place] Urine Protein Urine Glucose (UA) Urine Ketones Urine Blood Urine Nitrite Urine Bilirubin Urine Urobilinogen Ur Leukocyte Esterase Opiates Screen Methadone Screen Barbiturate Screen Phencyclidine Screen Ur Amphetamines Screen MDMA (Ecstasy) Screen Benzodiazepines Screen Cocaine Screen U Marijuana (THC) Screen CT abdomen: Mild acute recurrent pancreatitis in comparison to a previous CT study of 12/08/2016. A 1.8 cm nonspecific pancreatic tail cystic lesion is noted previously measuring 1 cm in diameter. The remainder of the exam demonstrates no definite interval change As on the prior exam there is mild dilatation of the main pancreatic duct within the body and tail with a 3.4 mm diameter. Prominent diffuse hepatic steatosis. Minimal splenomegaly. ASSESSMENT/PLAN: The pt is a 31 year old male with a past medical history of two episodes of severe pancreatitis admitted for another episode, transferred to ICU because of associated hypotension. Acute pancreatitis: -not known cause at this time, ay be due to gallstones/autoimmune/idiopathic -will consult Gi-Dr Mike -NS at rate 200 cc/hr, given 4 liters on NS so far, switched to D5NS at 200cc/hr -NPO -cont Zofran 8 mg Q8h PRN -cont pain control, Dilaulid 1 mg IV Q4H PRN switched to Morphine -will f/u lipid panel-TG normal -f/u CXR in AM, first one was nl -Malia score 0 (mortlity 0-3%) -[place] II 2. Hypotension: -controlled now, last one 108/51 -will cont IVF Morbid obesity: -BMI 41.3 kg/m2 -documented 72 lbs weight gain from November 2016 -counseled about healthy diet -HgA1c ordered to screen for DM -TSH ordered to r/o hypothyroidism DVT PPX: -SCDs -Heparin SQ TID F/E/N: D5NS at rate 200/no changes/NPO Disposition: ICU monitoring Problem List - Problem (1) Hypotension Code(s): I95.9 - HYPOTENSION, UNSPECIFIED (2) Acute pancreatitis Code(s): K85.90 - ACUTE PANCREATITIS WITHOUT NECROSIS OR INFECTION, UNSP QualifierTitle: Pancreatitis type: other Acute pancreatitis complication : no infection or necrosis Qualified Code(s): K85.80 - Other acute pancreatitis without necrosis or infection Visit type - Emergency Visit Emergency Visit: Yes ED Registration Date: 05/17/17 Care time: The patient presented to the Emergency Department on the above date and was hospitalized for further evaluation of their emergent condition. - New Patient This patient is new to me today: Yes Date on this admission: 05/17/17 - Critical Care Critical Care patient: Yes Total Critical Care Time (in minutes): 35 Critical Care Statement: The care of this patient involved high complexity decision making to prevent further life threatening deterioration of the patient 's condition and/or to evaluate & treat vital organ system(s) failure or risk of failure. Hospitalist Screening - Colonoscopy Questionnaire Colonoscopy Questionnaire: Colonoscopy Questionnaire - Patient: 50 - 75 years old and never had a screening colonoscopy: No History of colon or rectal polyps, or CA: No History of IBD, Crohn's disease or UC: No History of abdominal radiation therapy as a child: No - Relative: 1 with colon or rectal CA, or polyps at age 60 or younger: No Colon or rectal CA diagnosed at age 45 or younger: No Multiple relatives with colon or rectal CA: No - Outcome: Screening Result: Negative Screen <Karmen Vanegas - Last Filed: 05/17/17 19:00> Patient seen and examined with Dr. Aguirre at 12:50 PM Agree with above findings and plan of care with exceptions mentioned below. Patient reports upper abdominal pain but improved from prior, no dizziness currently. NO fevers/chills, nausea, vomiting or new complaints. GENERAL: Awake, alert, and fully oriented, in no acute distress, morbidly obese HEAD: Normal with no signs of trauma. EYES: Pupils equal, round and reactive to light, extraocular movements intact, sclera anicteric, conjunctiva clear. No lid lag. EARS, NOSE, THROAT: Ears normal, nares patent, oropharynx clear without exudates. mildly dry mucous membrane NECK: Normal range of motion, supple without lymphadenopathy, JVD, or masses. LUNGS: Breath sounds equal, clear to auscultation bilaterally. No wheezes, and no crackles. No accessory muscle use. HEART: Regular rate and rhythm, normal S1 and S2 without murmur, rub or gallop. ABDOMEN: Soft, obese, tenderness in epigastrium/LUQ, no voluntary or involuntary guarding or rigidity, positive bowel sounds, no masses felt MUSCULOSKELETAL: Normal range of motion at all joints. No bony deformities or tenderness. No CVA tenderness. UPPER EXTREMITIES: 2+ pulses, warm, well-perfused. No cyanosis. No clubbing. No peripheral edema. LOWER EXTREMITIES: 2+ pulses, warm, well-perfused. No calf tenderness. No peripheral edema. NEUROLOGICAL: Cranial nerves II-XII intact. Normal speech. PSYCHIATRIC: Cooperative. Good eye contact. Appropriate mood and affect. SKIN: Warm, dry,mildly decreased skin turgor, no rashes or lesions noted, normal capillary refill. Assessment/PLan: -Acute pancreatitis, unclear etiology -Pancreatic cyst -Morbid obesity -HYPotension, likely hypovolumia related, resolved Plan: Aggressive hydration, IVF, pain control. GI input, serial abdominal exams. Monitor for new fevers or worsening symptoms as at risk for secondary infection of cyst. Unclear etiology of recurrant attacks. Follow up TSH/A1c. Weight loss counseling provided. Anticipate transfer out of ICU in 24 hours if stable. Plan discussed with patient in detail, all questions answered. Total admit time in ICU spent 50 min. Hospitalist Screening - Colonoscopy Questionnaire Colonoscopy Questionnaire: Colonoscopy Questionnaire
--- NOTE | 2017-05-17 12:37 | PN ---
Teaching Attending Note Name of Resident: Tamara Oden ATTENDING PHYSICIAN STATEMENT I saw and evaluated the patient. I reviewed the resident's note and discussed the case with the resident. I agree with the resident's findings and plan as documented. SUBJECTIVE: Pt seen and examined in the ICU. Briefly 31yo male with h/o pancreatitis who presents with abdominal pain and nausea. Found to have elevated lipase/amylase and acute pancreatitis on CT A/P. 1st episode 2 years ago, 2nd in Nov 2016, work up nondiagnostic thus far aside from pancreatic cyst noted. No outpt f/u or GI eval. No fevers or chills. Social alcohol but none prior to this event. Triglyceride level in Nov also normal. No significant past medical history. OBJECTIVE: Last Vital Signs Temp Pulse Resp BP Pulse Ox 98.2 F 75 14 108/51 98 05/17/17 09:35 05/17/17 10:14 05/17/17 10:14 05/17/17 10:14 05/17/17 07:48 Intake & Output 05/14/17 05/15/17 05/16/17 05/17/17 23:59 23:59 23:59 23:59 Weight 127.006 kg Gen: NAD at rest Heart: RRR Lung: decreased breath sounds at the bases Abd: soft, nontender Ext: no edema CBC, BMP 05/17/17 02:49 05/17/17 02:49 Laboratory Tests 05/17/17 05/17/17 02:49 02:49 Total Amylase 415 H Lipase 5757 H Active Medications Chlorhexidine Gluconate (Hibiclens For Decolonization -) 1 applic TP HS AMELIE Heparin Sodium (Porcine) (Heparin -) 5,000 unit SQ TID AMELIE Hydromorphone HCl (Dilaudid Injection -) 1 mg IVPB Q4H PRN PRN Reason: PAIN LEVEL 6-10 Sodium Chloride (Normal Saline -) 1,000 mls @ 200 mls/hr IV ASDIR AMELIE Mupirocin (Bactroban Ointment (For Decolonization) -) 1 applic NS BID AMELIE Stop: 05/22/17 21:59 Ondansetron HCl (Zofran Injection) 8 mg IVPB Q8H PRN PRN Reason: NAUSEA ASSESSMENT AND PLAN: Recurrent Acute Pancreatitis Hypotension - ?hypovolemia - pain control - IVF resuscitation - trend lipase, lytes - abd ultrasound to r/o stones - GI evaluation - NPO for now - DVT prophylaxis
[2017-05-17] MEDS ORDERED: MAGNESIUM 1GM/D5W 100ML - 100 ML IVPB IVPB ONE (13:17)
--- NOTE | 2017-05-17 13:32 | EKG ---
Test Reason : Blood Pressure : / mmHG Vent. Rate : 077 BPM Atrial Rate : 077 BPM P-R Int : 138 ms QRS Dur : 086 ms QT Int : 376 ms P-R-T Axes : 024 013 000 degrees QTc Int : 425 ms NORMAL SINUS RHYTHM NORMAL ECG NO PREVIOUS ECGS AVAILABLE Confirmed by MD Bal, Hammad ([id number]) on 05/17/2017 1:32:22 PM Referred By: TALIA Confirmed By:Hammad Selby MD
[2017-05-17] MEDS: DEXTROSE 5%-NORMAL SALINE 1,000 ML IV SCH ×2 (14:00→20:43)
[2017-05-17] MEDS: HEPARIN NA (PORCINE) 5,000 UNITS/ML 1ML VIAL SQ SCH ×3 (14:04→22:58)
[2017-05-17 14:37] VITALS: BMI 45.1
[2017-05-17] MEDS ORDERED: ACETAMINOPHEN 325 MG TABLET (FP) PO ONE (15:00)
--- NOTE | 2017-05-17 18:54 | CON.GI ---
Consult Consult Specialty:: GI Reason for Consultation:: Pancreatitis - History of Present Illness History of Present Illness: Chart reviewed. A31 yom, obese, with 3rd episode of acute pancreatitis in the last 2 years. Denies smoking tobacco, chronic alcohol and history of gallstones. Denies history of autoimmune, or metabolic disorders personally, or in the family. No recent trauma, new medications, viral illnesses, or contacts with ill. Was hypotensive on admission, but otherwise stable, with no other organ system involvment. He presented to emergency room 2 days ago after he woke up at 1 AM in severe upper abdominal pain. It was located in epigastric area, radiating to the back. It was 10/10 in severity, constant and associated nausea. A CT scan was done and compared to the one done in the Fall of 2016. Mild pancreatitis and a 1 cm pancreatic cyst were noted. Hepatic steatosis and normal GB. US was limited however GB appeared normal w/o comments on gb stones, or sludge. - History Source History Provided By: Patient, Medical Record Limitations to Obtaining History: No Limitations - Alcohol/Substance Use Hx Alcohol Use: No - Smoking History Smoking history: Unknown if ever smoked Have you smoked in the past 12 months: No Aproximately how many cigarettes per day: 0 Home Medications - Allergies Allergies/Adverse Reactions: Allergies Allergy/AdvReac Type Severity Reaction Status Date / Time No Known Allergies Allergy Verified 05/17/17 02:50 - Home Medications Home Medications: Ambulatory Orders NK [No Known Home Medication] 05/17/17 Family Disease History - Family Disease History Family History: Unremarkable Other Family History: no family history of malignancy or pancreatitis Review of Systems Findings/Remarks: as per HPI, H&P Physical Exam-GI Vital Signs: Vital Signs Temperature 98.4 F 05/17/17 14:00 Pulse Rate 67 05/17/17 14:00 Respiratory Rate 15 05/17/17 14:00 Blood Pressure 114/64 05/17/17 14:00 O2 Sat by Pulse Oximetry (%) 98 05/17/17 07:48 Constitutional: Yes: Well Nourished, No Distress, Calm, Obese Eyes: Yes: Conjunctiva Clear HENT: Yes: Atraumatic Neck: Yes: Supple Cardiovascular: Yes: Regular Rate and Rhythm Respiratory: Yes: Regular ...Auscultate: Yes: Normoactive Bowel Sounds ...Palpate: No: Firm/Rigid, Guarding, Tenderness, Tenderness, Epigastium Neurological: Yes: Alert, Oriented Labs: CBC, BMP 05/17/17 02:49 05/17/17 02:49 INR, PTT INR 1.09 (0.82-1.09) 05/17/17 03:00 Laboratory Tests 05/17/17 05/17/17 05/17/17 02:49 02:49 02:49 WBC 8.6 RBC 5.25 Hgb 15.4 Hct 45.2 MCV 86.0 MCH 29.3 MCHC 34.1 RDW 12.8 Plt Count 292 MPV 8.7 Neutrophils % 44.8 Lymphocytes % 45.8 H Monocytes % 5.9 Eosinophils % 2.8 Basophils % 0.7 PT with INR INR PTT (Actin FS) Sodium 139 Potassium 3.8 Chloride 100 Carbon Dioxide 28 Anion Gap 11 BUN 16 Creatinine 1.1 Creat Clearance w eGFR > 60 POC Glucometer Random Glucose 94 Calcium 9.2 Phosphorus Magnesium Total Bilirubin 0.6 AST 22 ALT 49 Alkaline Phosphatase 93 LD Total Total Protein 7.8 Albumin 3.8 Triglycerides Cholesterol Total LDL Cholesterol HDL Cholesterol Total Amylase 415 H Lipase 5757 H TSH Urine Color Urine Appearance Urine pH Ur Specific [place] Urine Protein Urine Glucose (UA) Urine Ketones Urine Blood Urine Nitrite Urine Bilirubin Urine Urobilinogen Ur Leukocyte Esterase Opiates Screen Methadone Screen Barbiturate Screen Phencyclidine Screen Ur Amphetamines Screen MDMA (Ecstasy) Screen Benzodiazepines Screen Cocaine Screen U Marijuana (THC) Screen 05/17/17 05/17/17 05/17/17 03:00 07:00 07:00 WBC RBC Hgb Hct MCV MCH MCHC RDW Plt Count MPV Neutrophils % Lymphocytes % Monocytes % Eosinophils % Basophils % PT with INR 12.30 H INR 1.09 PTT (Actin FS) Sodium Potassium Chloride Carbon Dioxide Anion Gap BUN Creatinine Creat Clearance w eGFR POC Glucometer Random Glucose Calcium Phosphorus Magnesium Total Bilirubin AST ALT Alkaline Phosphatase LD Total Total Protein Albumin Triglycerides Cholesterol Total LDL Cholesterol HDL Cholesterol Total Amylase Lipase TSH Urine Color Yellow Urine Appearance Clear Urine pH 6.0 Ur Specific [place] 1.010 Urine Protein Negative Urine Glucose (UA) Negative Urine Ketones Negative Urine Blood Negative Urine Nitrite Negative Urine Bilirubin Negative Urine Urobilinogen 0.2 Ur Leukocyte Esterase Negative Opiates Screen Positive Methadone Screen Negative Barbiturate Screen Negative Phencyclidine Screen Negative Ur Amphetamines Screen Negative MDMA (Ecstasy) Screen Negative Benzodiazepines Screen Negative Cocaine Screen Negative U Marijuana (THC) Screen Positive 05/17/17 05/17/17 05/17/17 10:00 10:00 10:00 WBC RBC Hgb Hct MCV MCH MCHC RDW Plt Count MPV Neutrophils % Lymphocytes % Monocytes % Eosinophils % Basophils % PT with INR INR PTT (Actin FS) Sodium Potassium Chloride Carbon Dioxide Anion Gap BUN Creatinine Creat Clearance w eGFR POC Glucometer Random Glucose Calcium Phosphorus 3.1 Magnesium 1.7 L Total Bilirubin AST ALT Alkaline Phosphatase LD Total 119 Total Protein Albumin Triglycerides Cancelled Cancelled 69 Cholesterol Cancelled 103 Total LDL Cholesterol Cancelled 62 HDL Cholesterol Cancelled 42 Total Amylase Lipase TSH Urine Color Urine Appearance Urine pH Ur Specific [place] Urine Protein Urine Glucose (UA) Urine Ketones Urine Blood Urine Nitrite Urine Bilirubin Urine Urobilinogen Ur Leukocyte Esterase Opiates Screen Methadone Screen Barbiturate Screen Phencyclidine Screen Ur Amphetamines Screen MDMA (Ecstasy) Screen Benzodiazepines Screen Cocaine Screen U Marijuana (THC) Screen 05/17/17 05/18/17 05/18/17 18:07 03:57 05:25 WBC 6.2 RBC 4.65 Hgb 13.6 D Hct 40.2 MCV 86.6 MCH 29.2 MCHC 33.7 RDW 12.8 Plt Count 243 MPV 8.8 Neutrophils % 38.6 L Lymphocytes % 46.7 H Monocytes % 6.9 Eosinophils % 7.3 H D Basophils % 0.5 PT with INR INR PTT (Actin FS) Sodium Potassium Chloride Carbon Dioxide Anion Gap BUN Creatinine Creat Clearance w eGFR POC Glucometer 114.26414 110.48562 Random Glucose Calcium Phosphorus Magnesium Total Bilirubin AST ALT Alkaline Phosphatase LD Total Total Protein Albumin Triglycerides Cholesterol Total LDL Cholesterol HDL Cholesterol Total Amylase Lipase TSH Urine Color Urine Appearance Urine pH Ur Specific [place] Urine Protein Urine Glucose (UA) Urine Ketones Urine Blood Urine Nitrite Urine Bilirubin Urine Urobilinogen Ur Leukocyte Esterase Opiates Screen Methadone Screen Barbiturate Screen Phencyclidine Screen Ur Amphetamines Screen MDMA (Ecstasy) Screen Benzodiazepines Screen Cocaine Screen U Marijuana (THC) Screen 05/18/17 05/18/17 05/18/17 05:25 05:25 05:25 WBC RBC Hgb Hct MCV MCH MCHC RDW Plt Count MPV Neutrophils % Lymphocytes % Monocytes % Eosinophils % Basophils % PT with INR 12.70 H INR 1.12 PTT (Actin FS) 33.2 Sodium 141 Potassium 4.1 Chloride 106 Carbon Dioxide 27 Anion Gap 8 BUN 6 L D Creatinine 0.8 D Creat Clearance w eGFR > 60 POC Glucometer Random Glucose 102 Calcium 7.7 L Phosphorus 2.5 Magnesium 2.2 D Total Bilirubin 0.6 AST 19 ALT 36 D Alkaline Phosphatase 63 D LD Total Total Protein 5.8 L D Albumin 2.8 L D Triglycerides Cholesterol Total LDL Cholesterol HDL Cholesterol Total Amylase Lipase 1178 H TSH 1.34 Urine Color Urine Appearance Urine pH Ur Specific [place] Urine Protein Urine Glucose (UA) Urine Ketones Urine Blood Urine Nitrite Urine Bilirubin Urine Urobilinogen Ur Leukocyte Esterase Opiates Screen Methadone Screen Barbiturate Screen Phencyclidine Screen Ur Amphetamines Screen MDMA (Ecstasy) Screen Benzodiazepines Screen Cocaine Screen U Marijuana (THC) Screen Imaging - Results Cat Scan: Report Reviewed Ultrasound: Report Reviewed Problem List - Problems (1) Biliary acute pancreatitis Code(s): K85.10 - BILIARY ACUTE PANCREATITIS WITHOUT NECROSIS OR INFECTION (2) Acute pancreatitis Code(s): K85.90 - ACUTE PANCREATITIS WITHOUT NECROSIS OR INFECTION, UNSP Qualifiers: Pancreatitis type: other Acute pancreatitis complication: no infection or necrosis Qualified Code(s): K85.80 - Other acute pancreatitis without necrosis or infection Assessment/Plan Mild acute pancreatitis, recurrent. No obvious risk factors. MRCP may be helpful Suspect biliary pancreatitis related to microlithiasis. Consider discussion with surgery re cholecystectomy Agree with current management Follow autoimmune work up. Discussed with the patient
[2017-05-17] MEDS: morphine SULFATE 4 MG/ML VIAL IVPUSH PRN ×2 (19:20→23:03)
[2017-05-17] MEDS: MUPIROCIN 2% TOPICAL OINTMENT FOR DECOLONIZATION NS SCH (21:48)
[2017-05-17] MEDS ORDERED: CHLORHEXIDINE GLUCONATE 4% CLEANSER FOR DECOLONIZATION TP SCH (22:00)
[2017-05-18] MEDS: morphine SULFATE 4 MG/ML VIAL IVPUSH PRN ×2 (05:49→12:14)
[2017-05-18] MEDS: HEPARIN NA (PORCINE) 5,000 UNITS/ML 1ML VIAL SQ SCH ×2 (05:50→14:29)
[2017-05-18 06:33] LABS: BASO % 0.5 % (0-2.0); EOS % 7.3 % (0-4.5); HEMATOCRIT 40.2 % (35.4-49); HEMOGLOBIN 13.6 GM/dL (11.7-16.9); LYMPH % 46.7 % (8-40); MCH 29.2 pg (25.7-33.7); MCHC 33.7 g/dl (32.0-35.9); MEAN CELL VOLUME 86.6 fl (80-96); MEAN PLT VOLUME 8.8 fl (7.5-11.1); MONO % 6.9 % (3.8-10.2); NEUT % 38.6 % (42.8-82.8); PLATELET COUNT 243 K/MM3 (134-434); RBC 4.65 M/mm3 (4.00-5.60); RDW 12.8 % (11.9-15.9); WHITE BLOOD COUNT 6.2 K/mm3 (4.0-10.0)
[2017-05-18 06:54] LABS: INR 1.12 (0.82-1.09); PROTHROMBIN TIME (PATIENT) 12.7 SEC (9.98-11.88)
[2017-05-18 06:56] LABS: ACTIVATED PTT 33.2 SECONDS (26.9-34.4)
[2017-05-18 07:00] LABS: ALBUMIN 2.8 g/dl (3.4-5.0); ANION GAP 8 (8-16); CALCIUM 7.7 mg/dL (8.5-10.1); CHLORIDE 106 mmol/L (98-107); CO2 27 mmol/L (21-32); MAGNESIUM 2.2 mg/dL (1.8-2.4); POTASSIUM 4.1 mmol/L (3.5-5.1); SODIUM 141 mmol/L (136-145)
[2017-05-18 07:06] LABS: ALK PHOS 63 U/L (45-117); BILIRUBIN,TOTAL 0.6 mg/dL (0.2-1.0); BLOOD UREA NITROGEN 6 mg/dL (7-18); CREATININE 0.8 mg/dL (0.7-1.3); GLUCOSE,RANDOM 102 mg/dL (74-106); PHOSPHOROUS 2.5 mg/dL (2.5-4.9); SGOT/AST 19 U/L (15-37); SGPT/ALT 36 U/L (12-78); TOT PROT 5.8 g/dl (6.4-8.2)
--- NOTE | 2017-05-18 08:22 | PN ---
Progress Note, Physician History of Present Illness: mild epigastric pain overnight, otherwise no events. - Current Medication List Current Medications: Active Medications Chlorhexidine Gluconate (Hibiclens For Decolonization -) 1 applic TP HS [facility] Last Admin: 05/17/17 21:48 Dose: 1 applic Heparin Sodium (Porcine) (Heparin -) 5,000 unit SQ TID [facility] Last Admin: 05/18/17 05:50 Dose: Not Given Dextrose/Sodium Chloride (D5-Ns -) 1,000 mls @ 200 mls/hr IV ASDIR [facility] Last Admin: 05/17/17 20:43 Dose: 200 mls/hr Morphine Sulfate (Morphine Sulfate) 2 mg IVPUSH Q4H PRN PRN Reason: PAIN 6-10 Last Admin: 05/18/17 05:49 Dose: 2 mg Mupirocin (Bactroban Ointment (For Decolonization) -) 1 applic NS BID [facility] Stop: 05/22/17 21:59 Last Admin: 05/17/17 21:48 Dose: 1 applic Ondansetron HCl (Zofran Injection) 8 mg IVPB Q8H PRN PRN Reason: NAUSEA - Objective Vital Signs: Vital Signs Temperature 98.3 F 05/18/17 02:00 Pulse Rate 64 05/18/17 07:40 Respiratory Rate 15 05/18/17 07:40 Blood Pressure 117/59 05/18/17 07:40 O2 Sat by Pulse Oximetry (%) 98 05/18/17 07:34 Constitutional: Yes: Well Nourished, No Distress Eyes: Yes: Conjunctiva Clear HENT: Yes: Atraumatic Neck: Yes: Supple Cardiovascular: Yes: Regular Rate and Rhythm Respiratory: Yes: Regular Gastrointestinal: Yes: Normal Bowel Sounds, Soft, Tenderness, Epigastrium. No: Distention, Vomiting Neurological: Yes: Alert, Oriented Labs: CBC, BMP 05/18/17 05:25 05/18/17 05:25 INR, PTT INR 1.12 (0.82-1.09) 05/18/17 05:25 Laboratory Results - last 24 hr 05/17/17 05/17/17 05/17/17 07:00 10:00 10:00 WBC RBC Hgb Hct MCV MCH MCHC RDW Plt Count MPV Neutrophils % Lymphocytes % Monocytes % Eosinophils % Basophils % PT with INR INR PTT (Actin FS) Sodium Potassium Chloride Carbon Dioxide Anion Gap BUN Creatinine Creat Clearance w eGFR POC Glucometer Random Glucose Calcium Phosphorus 3.1 Magnesium 1.7 L Total Bilirubin AST ALT Alkaline Phosphatase LD Total 119 Total Protein Albumin Triglycerides Cancelled Cancelled Cholesterol Cancelled Total LDL Cholesterol Cancelled HDL Cholesterol Cancelled Lipase TSH Opiates Screen Positive Methadone Screen Negative Barbiturate Screen Negative Phencyclidine Screen Negative Ur Amphetamines Screen Negative MDMA (Ecstasy) Screen Negative Benzodiazepines Screen Negative Cocaine Screen Negative U Marijuana (THC) Screen Positive 05/17/17 05/17/17 05/18/17 10:00 18:07 03:57 WBC RBC Hgb Hct MCV MCH MCHC RDW Plt Count MPV Neutrophils % Lymphocytes % Monocytes % Eosinophils % Basophils % PT with INR INR PTT (Actin FS) Sodium Potassium Chloride Carbon Dioxide Anion Gap BUN Creatinine Creat Clearance w eGFR POC Glucometer 114.75898 110.15958 Random Glucose Calcium Phosphorus Magnesium Total Bilirubin AST ALT Alkaline Phosphatase LD Total Total Protein Albumin Triglycerides 69 Cholesterol 103 Total LDL Cholesterol 62 HDL Cholesterol 42 Lipase TSH Opiates Screen Methadone Screen Barbiturate Screen Phencyclidine Screen Ur Amphetamines Screen MDMA (Ecstasy) Screen Benzodiazepines Screen Cocaine Screen U Marijuana (THC) Screen 05/18/17 05/18/17 05/18/17 05:25 05:25 05:25 WBC 6.2 RBC 4.65 Hgb 13.6 D Hct 40.2 MCV 86.6 MCH 29.2 MCHC 33.7 RDW 12.8 Plt Count 243 MPV 8.8 Neutrophils % 38.6 L Lymphocytes % 46.7 H Monocytes % 6.9 Eosinophils % 7.3 H D Basophils % 0.5 PT with INR 12.70 H INR 1.12 PTT (Actin FS) 33.2 Sodium 141 Potassium 4.1 Chloride 106 Carbon Dioxide 27 Anion Gap 8 BUN 6 L D Creatinine 0.8 D Creat Clearance w eGFR > 60 POC Glucometer Random Glucose 102 Calcium 7.7 L Phosphorus 2.5 Magnesium 2.2 D Total Bilirubin 0.6 AST 19 ALT 36 D Alkaline Phosphatase 63 D LD Total Total Protein 5.8 L D Albumin 2.8 L D Triglycerides Cholesterol Total LDL Cholesterol HDL Cholesterol Lipase TSH Opiates Screen Methadone Screen Barbiturate Screen Phencyclidine Screen Ur Amphetamines Screen MDMA (Ecstasy) Screen Benzodiazepines Screen Cocaine Screen U Marijuana (THC) Screen 05/18/17 05:25 WBC RBC Hgb Hct MCV MCH MCHC RDW Plt Count MPV Neutrophils % Lymphocytes % Monocytes % Eosinophils % Basophils % PT with INR INR PTT (Actin FS) Sodium Potassium Chloride Carbon Dioxide Anion Gap BUN Creatinine Creat Clearance w eGFR POC Glucometer Random Glucose Calcium Phosphorus Magnesium Total Bilirubin AST ALT Alkaline Phosphatase LD Total Total Protein Albumin Triglycerides Cholesterol Total LDL Cholesterol HDL Cholesterol Lipase 1178 H TSH 1.34 Opiates Screen Methadone Screen Barbiturate Screen Phencyclidine Screen Ur Amphetamines Screen MDMA (Ecstasy) Screen Benzodiazepines Screen Cocaine Screen U Marijuana (THC) Screen Problem List - Problems (1) Biliary acute pancreatitis Code(s): K85.10 - BILIARY ACUTE PANCREATITIS WITHOUT NECROSIS OR INFECTION (2) Acute pancreatitis Code(s): K85.90 - ACUTE PANCREATITIS WITHOUT NECROSIS OR INFECTION, UNSP Qualifiers: Pancreatitis type: other Acute pancreatitis complication: no infection or necrosis Qualified Code(s): K85.80 - Other acute pancreatitis without necrosis or infection Assessment/Plan Mild acute pancreatitis, recurrent. No obvious risk factors. MRCP may be helpful Suspect biliary pancreatitis related to microlithiasis. Consider discussion with surgery re cholecystectomy Agree with current management Clear liquid diet Follow autoimmune work up. Discussed with the patient
[2017-05-18 10:38] VITALS: TEMP 98.4
[2017-05-18] MEDS: MUPIROCIN 2% TOPICAL OINTMENT FOR DECOLONIZATION NS SCH (10:47)
--- NOTE | 2017-05-18 11:44 | PN ---
Teaching Attending Note Name of Resident: Tamara Cecille ATTENDING PHYSICIAN STATEMENT I saw and evaluated the patient. I reviewed the resident's note and discussed the case with the resident. I agree with the resident's findings and plan as documented. SUBJECTIVE: Pt seen and examined in the ICU. Abdominal pain, nausea has resolved. No fevers or chills. No shortness of breath or chest pain. OBJECTIVE: Last Vital Signs Temp Pulse Resp BP Pulse Ox 98.4 F 83 17 101/53 98 05/18/17 10:00 05/18/17 10:00 05/18/17 10:00 05/18/17 10:00 05/18/17 07:34 Intake & Output 05/15/17 05/16/17 05/17/17 05/18/17 23:59 23:59 23:59 23:59 Intake Total 800 1400 Output Total 800 1850 Balance 0 -450 Weight 138.799 kg 139.6 kg Gen: NAD at rest Heart: RRR Lung: decreased breath sounds at the bases Abd: soft, nontender Ext: no edema CBC, BMP 05/18/17 05:25 05/18/17 05:25 Laboratory Tests 05/18/17 05:25 Lipase 1178 H Active Medications Chlorhexidine Gluconate (Hibiclens For Decolonization -) 1 applic TP HS [facility] Last Admin: 05/17/17 21:48 Dose: 1 applic Heparin Sodium (Porcine) (Heparin -) 5,000 unit SQ TID [facility] Last Admin: 05/18/17 05:50 Dose: Not Given Dextrose/Sodium Chloride (D5-Ns -) 1,000 mls @ 200 mls/hr IV ASDIR [facility] Last Admin: 05/17/17 20:43 Dose: 200 mls/hr Morphine Sulfate (Morphine Sulfate) 2 mg IVPUSH Q4H PRN PRN Reason: PAIN 6-10 Last Admin: 05/18/17 05:49 Dose: 2 mg Mupirocin (Bactroban Ointment (For Decolonization) -) 1 applic NS BID [facility] Stop: 05/22/17 21:59 Last Admin: 05/18/17 10:47 Dose: 1 applic Ondansetron HCl (Zofran Injection) 8 mg IVPB Q8H PRN PRN Reason: NAUSEA ASSESSMENT AND PLAN: Recurrent Acute Pancreatitis Hypotension - ?hypovolemia resolved - pain control - continue IVF for another day - trend lipase, lytes - PO per GI - DVT prophylaxis - can monitor on floor
--- NOTE | 2017-05-18 13:36 | PN ---
Physical Exam: SUBJECTIVE: Patient seen and examined at bed side this morning. No complaints. Feels good. Abdominal pain has resolved. Denies nausea, vomiting, chest pain, sob, cough, palpitation. No acute overnight events. OBJECTIVE: Vital Signs Period Temp Pulse Resp BP Sys/Schwartz Pulse Ox Last 24 Hr 98.3 F-98.4 F 63-83 12-17 95-117/53-70 98-98 GENERAL: The patient is awake, alert, and fully oriented, in no acute distress. HEAD: Normal with no signs of trauma. EYES: EOM intact, no pallor or icterus. ENT: Ears normal, moist mucous membranes. NECK: Supple. LUNGS: Breath sounds equal, clear to auscultation bilaterally, no wheezes, no crackles, no accessory muscle use. HEART: Regular rate and rhythm, S1, S2 without murmur, rub or gallop. ABDOMEN: Soft, nontender, nondistended, normoactive bowel sounds, no guarding, no rebound, no hepatosplenomegaly, no masses. EXTREMITIES: 2+ pulses, warm, well-perfused, no edema. NEUROLOGICAL: Normal speech, Power 5/5 in all extremities, gait not observed. PSYCH: Normal mood, normal affect. SKIN: Warm, dry, normal turgor, no rashes or lesions noted Laboratory Results - last 24 hr 05/17/17 05/18/17 05/18/17 18:07 03:57 05:25 WBC 6.2 RBC 4.65 Hgb 13.6 D Hct 40.2 MCV 86.6 MCH 29.2 MCHC 33.7 RDW 12.8 Plt Count 243 MPV 8.8 Neutrophils % 38.6 L Lymphocytes % 46.7 H Monocytes % 6.9 Eosinophils % 7.3 H D Basophils % 0.5 PT with INR INR PTT (Actin FS) Sodium Potassium Chloride Carbon Dioxide Anion Gap BUN Creatinine Creat Clearance w eGFR POC Glucometer 114.37231 110.75799 Random Glucose Hemoglobin A1c % Calcium Phosphorus Magnesium Total Bilirubin AST ALT Alkaline Phosphatase Total Protein Albumin Lipase TSH 05/18/17 05/18/17 05/18/17 05:25 05:25 05:25 WBC RBC Hgb Hct MCV MCH MCHC RDW Plt Count MPV Neutrophils % Lymphocytes % Monocytes % Eosinophils % Basophils % PT with INR 12.70 H INR 1.12 PTT (Actin FS) 33.2 Sodium 141 Potassium 4.1 Chloride 106 Carbon Dioxide 27 Anion Gap 8 BUN 6 L D Creatinine 0.8 D Creat Clearance w eGFR > 60 POC Glucometer Random Glucose 102 Hemoglobin A1c % Calcium 7.7 L Phosphorus 2.5 Magnesium 2.2 D Total Bilirubin 0.6 AST 19 ALT 36 D Alkaline Phosphatase 63 D Total Protein 5.8 L D Albumin 2.8 L D Lipase 1178 H TSH 1.34 05/18/17 05/18/17 05:25 06:09 WBC RBC Hgb Hct MCV MCH MCHC RDW Plt Count MPV Neutrophils % Lymphocytes % Monocytes % Eosinophils % Basophils % PT with INR INR PTT (Actin FS) Sodium Potassium Chloride Carbon Dioxide Anion Gap BUN Creatinine Creat Clearance w eGFR POC Glucometer 128.26561 Random Glucose Hemoglobin A1c % 5.1 Calcium Phosphorus Magnesium Total Bilirubin AST ALT Alkaline Phosphatase Total Protein Albumin Lipase TSH Active Medications Generic Name Dose Route Start Last Admin Trade Name Freq PRN Reason Stop Dose Admin Chlorhexidine Gluconate 1 applic 05/17/17 22:00 05/17/17 21:48 Hibiclens For Decolonization - TP 1 applic HS AMELIE Administration Heparin Sodium (Porcine) 5,000 unit 05/17/17 14:00 05/18/17 05:50 Heparin - SQ Not Given TID AMELIE Dextrose/Sodium Chloride 1,000 mls @ 200 mls/hr 05/17/17 13:30 05/17/17 20:43 D5-Ns - IV 200 mls/hr ASDIR AMELIE Administration Morphine Sulfate 2 mg 05/17/17 12:37 05/18/17 12:14 Morphine Sulfate IVPUSH 2 mg Q4H PRN Administration PAIN 6-10 Mupirocin 1 applic 05/17/17 22:00 05/18/17 10:47 Bactroban Ointment (For Decolonization) - NS 05/22/17 21:59 1 applic BID AMELIE Administration Ondansetron HCl 8 mg 05/17/17 10:51 Zofran Injection IVPB Q8H PRN NAUSEA ASSESSMENT/PLAN: Patient is a 31 year old male with a past medical history of two episodes of severe pancreatitis admitted for another episode, transferred to ICU because of associated hypotension. # GI Acute pancreatitis-3rd recurrence Unknown cause-Cholelithiasis ruled out; no h/o binge drinking, no family h/o pancreatitis, TG normal, no h/o scorpion bite, not on any meds causing pancreatitis. GI consult appreciated, MRCP ordered today-pt refused despite counseling, started on clears today. Continue IV D5-1/2 NS @ 100mls/hr IV Morphine 2mg W4H PRN, last dose given at 5:46am today. Lipase trending down # Morbid obesity BMI 45.5 A1c -5.1 Diet and exercise counseling # Neuro/Cardio/Respiratory-No active issues. # Prophylaxis For DVT: On heparin 5000 IU sq TID For GI: Not indicated # Code Status: Full Code # Dispo: Hemodynamically stable and can be transferred to Med-Surg. Illness, Investigation and Plan of care explained to the patient. He verbalized understanding. Case seen and discussed with Dr. Corona. Visit type - Emergency Visit Emergency Visit: Yes ED Registration Date: 05/17/17 Care time: The patient presented to the Emergency Department on the above date and was hospitalized for further evaluation of their emergent condition. - New Patient This patient is new to me today: No - Critical Care Critical Care patient: Yes Total Critical Care Time (in minutes): 40 Critical Care Statement: The care of this patient involved high complexity decision making to prevent further life threatening deterioration of the patient 's condition and/or to evaluate & treat vital organ system(s) failure or risk of failure. - Discharge Referral Referred to [facility] Med P.C.: No
[2017-05-18] MEDS: DEXTROSE 5%-NORMAL SALINE 1,000 ML IV SCH (14:28)
[2017-05-18 15:52] VITALS: BP 96/51; PULSE 66
--- NOTE | 2017-05-18 17:17 | DS ---
Physical Exam: SUBJECTIVE: Patient seen and examined. Pt tolerating po. Pt has no c/o. Pt looks comfortable. Pt feels ready to go home. OBJECTIVE: Vital Signs Period Temp Pulse Resp BP Sys/Schwartz Pulse Ox Last 24 Hr 98.3 F-98.4 F 63-83 12-20 95-117/51-70 98-98 PHYSICAL EXAM GENERAL: The patient is awake, alert, and fully oriented, in no acute distress. LUNGS: Breath sounds equal, clear to auscultation bilaterally, no wheezes, no crackles, no accessory muscle use. HEART: Regular rate and rhythm, S1, S2 without murmur, rub or gallop. ABDOMEN: Soft, nontender, nondistended, normoactive bowel sounds, no guarding. EXTREMITIES: Warm, well-perfused, no edema. PSYCH: Normal mood, normal affect. LABS Laboratory Results - last 24 hr 05/17/17 05/18/17 05/18/17 18:07 03:57 05:25 WBC 6.2 RBC 4.65 Hgb 13.6 D Hct 40.2 MCV 86.6 MCH 29.2 MCHC 33.7 RDW 12.8 Plt Count 243 MPV 8.8 Neutrophils % 38.6 L Lymphocytes % 46.7 H Monocytes % 6.9 Eosinophils % 7.3 H D Basophils % 0.5 PT with INR INR PTT (Actin FS) Sodium Potassium Chloride Carbon Dioxide Anion Gap BUN Creatinine Creat Clearance w eGFR POC Glucometer 114.01620 110.00654 Random Glucose Hemoglobin A1c % Calcium Phosphorus Magnesium Total Bilirubin AST ALT Alkaline Phosphatase Total Protein Albumin Lipase TSH 05/18/17 05/18/17 05/18/17 05:25 05:25 05:25 WBC RBC Hgb Hct MCV MCH MCHC RDW Plt Count MPV Neutrophils % Lymphocytes % Monocytes % Eosinophils % Basophils % PT with INR 12.70 H INR 1.12 PTT (Actin FS) 33.2 Sodium 141 Potassium 4.1 Chloride 106 Carbon Dioxide 27 Anion Gap 8 BUN 6 L D Creatinine 0.8 D Creat Clearance w eGFR > 60 POC Glucometer Random Glucose 102 Hemoglobin A1c % Calcium 7.7 L Phosphorus 2.5 Magnesium 2.2 D Total Bilirubin 0.6 AST 19 ALT 36 D Alkaline Phosphatase 63 D Total Protein 5.8 L D Albumin 2.8 L D Lipase 1178 H TSH 1.34 05/18/17 05/18/17 05:25 06:09 WBC RBC Hgb Hct MCV MCH MCHC RDW Plt Count MPV Neutrophils % Lymphocytes % Monocytes % Eosinophils % Basophils % PT with INR INR PTT (Actin FS) Sodium Potassium Chloride Carbon Dioxide Anion Gap BUN Creatinine Creat Clearance w eGFR POC Glucometer 128.52042 Random Glucose Hemoglobin A1c % 5.1 Calcium Phosphorus Magnesium Total Bilirubin AST ALT Alkaline Phosphatase Total Protein Albumin Lipase TSH HOSPITAL COURSE: Date of Admission:05/17/17 Date of Discharge: 05/18/17 31M with PMH of recurrent pancreatitis, presents with epigastric pain radiating to back, from Lit admitted to ICU for acute pancreatitis and hypotension. Pt found on imaging to have cyst on tail of pancreas. Pt declined MRCP 2/ "bad experience" another time with MRI. Pt seen by Surgery (Dr. George) who does not recommend cholecystectomy at this time. Pt seen by GI (Dr. Mike), and will f/u for autoimmune w/u. 05/17/17 Ab/Pel CT -> mild recurrent pancreatitis. 1.8cm nonspecific pancreatic tail cystic lesion increased in size from 1.0cm. Mild dilation of main pancreatic duct in body and tail (3.4mm). Prominent diffuse hepatic steatosis. Mild splenomegaly. 05/17/17 CXR -> no acute pathology 05/17/17 Ab US -> no cholelithiasis, acute cholecystitis or biliary ductal dilatation. Hepatic steatosis. 05/18/17 CXR -> no acute pathology Pt tolerating soft diet. Pt stable for discharge home. Minutes to complete discharge: 38 Discharge Summary Reason For Visit: ACUTE PANCREATITIS Current Active Problems Acute pancreatitis (Acute) Biliary acute pancreatitis (Acute) Hypotension (Acute) Condition: Improved - Instructions Diet, Activity, Other Instructions: You were treated for recurrent pancreatitis. On imaging it was found that you have a cyst on the tail of your pancreas. No new medications were prescribed for long-term use. Use Tylenol or NSAIDs for pain as needed. Continue to eat a regular diet (no restrictions). Increase your physical activity as tolerated. Weight loss is advised, through dietary changes and increasing exercise. Follow-ups: - schedule an appointment with your Primary Care Physician (Dr. Santiago) in 1 week - schedule an appointment with a General Surgeon (contact information for Dr. George attached) to consider elective cholecystectomy (to have your gallbladder removed) - schedule an appointment with GI (Dr. Mike) to follow-up the autoimmune work- up (seeking cause of your recurrent pancreatitis) and management of the pancreatic tail cyst. Please return to the hospital immediately if you experience persistent or increased abdominal pain, fever, chills, chest pain, difficulty breathing, fevers, chills or for any medical emergency. Referrals: Armando George MD [Staff Physician] - 1 Week Sea Mike MD [Staff Physician] - 1 Week Disposition: HOME This patient is new to me today: Yes Date on this admission: 05/19/17 Emergency Visit: Yes ED Registration Date: 05/17/17 Care time: The patient presented to the Emergency Department on the above date and was hospitalized for further evaluation of their emergent condition. Critical Care patient: Yes Total Critical Care Time (in minutes): 38 Critical Care Statement: The care of this patient involved high complexity decision making to prevent further life threatening deterioration of the patient 's condition and/or to evaluate & treat vital organ system(s) failure or risk of failure. - Discharge Referral Referred to [facility] Med P.C.: No
--- NOTE | 2017-05-18 17:59 | PN ---
Teaching Attending Note Name of Resident: Karol Orozco ATTENDING PHYSICIAN STATEMENT Time of evaluation: 9:50 AM I saw and evaluated the patient. I reviewed the resident's note and discussed the case with the resident. I agree with the resident's findings and plan as documented. SUBJECTIVE: Patient seen and examined. no compliants, or abdominal pain, tolerating po well. OBJECTIVE: Vital Signs Period Temp Pulse Resp BP Sys/Schwartz Pulse Ox Last 24 Hr 98.3 F-98.4 F 63-83 12-20 95-117/51-70 98-98 Intake & Output 05/15/17 05/16/17 05/17/17 05/18/17 23:59 23:59 23:59 23:59 Intake Total 800 2000 Output Total 800 3050 Balance 0 -1050 Weight 306 lb 307 lb 12.245 oz general: sitting in bed, no acute distress Abdomen: soft, obese, NT throughout, positive bowel sounds Extremities: no edema Active Medications Generic Name Dose Route Start Last Admin Trade Name Freq PRN Reason Stop Dose Admin Chlorhexidine Gluconate 1 applic 05/17/17 22:00 05/17/17 21:48 Hibiclens For Decolonization - TP 1 applic HS AMELIE Administration Heparin Sodium (Porcine) 5,000 unit 05/17/17 14:00 05/18/17 14:29 Heparin - SQ 5,000 unit TID AMELIE Administration Dextrose/Sodium Chloride 1,000 mls @ 200 mls/hr 05/17/17 13:30 05/18/17 14:28 D5-Ns - IV 200 mls/hr ASDIR AMELIE Administration Morphine Sulfate 2 mg 05/17/17 12:37 05/18/17 12:14 Morphine Sulfate IVPUSH 2 mg Q4H PRN Administration PAIN 6-10 Mupirocin 1 applic 05/17/17 22:00 05/18/17 10:47 Bactroban Ointment (For Decolonization) - NS 05/22/17 21:59 1 applic BID AMELIE Administration Ondansetron HCl 8 mg 05/17/17 10:51 Zofran Injection IVPB Q8H PRN NAUSEA Laboratory Results - last 24 hr 05/17/17 05/18/17 05/18/17 18:07 03:57 05:25 WBC 6.2 RBC 4.65 Hgb 13.6 D Hct 40.2 MCV 86.6 MCH 29.2 MCHC 33.7 RDW 12.8 Plt Count 243 MPV 8.8 Neutrophils % 38.6 L Lymphocytes % 46.7 H Monocytes % 6.9 Eosinophils % 7.3 H D Basophils % 0.5 PT with INR INR PTT (Actin FS) Sodium Potassium Chloride Carbon Dioxide Anion Gap BUN Creatinine Creat Clearance w eGFR POC Glucometer 114.27382 110.20975 Random Glucose Hemoglobin A1c % Calcium Phosphorus Magnesium Total Bilirubin AST ALT Alkaline Phosphatase Total Protein Albumin Lipase TSH 05/18/17 05/18/17 05/18/17 05:25 05:25 05:25 WBC RBC Hgb Hct MCV MCH MCHC RDW Plt Count MPV Neutrophils % Lymphocytes % Monocytes % Eosinophils % Basophils % PT with INR 12.70 H INR 1.12 PTT (Actin FS) 33.2 Sodium 141 Potassium 4.1 Chloride 106 Carbon Dioxide 27 Anion Gap 8 BUN 6 L D Creatinine 0.8 D Creat Clearance w eGFR > 60 POC Glucometer Random Glucose 102 Hemoglobin A1c % Calcium 7.7 L Phosphorus 2.5 Magnesium 2.2 D Total Bilirubin 0.6 AST 19 ALT 36 D Alkaline Phosphatase 63 D Total Protein 5.8 L D Albumin 2.8 L D Lipase 1178 H TSH 1.34 18 05/18/17 05:25 06:09 WBC RBC Hgb Hct MCV MCH MCHC RDW Plt Count MPV Neutrophils % Lymphocytes % Monocytes % Eosinophils % Basophils % PT with INR INR PTT (Actin FS) Sodium Potassium Chloride Carbon Dioxide Anion Gap BUN Creatinine Creat Clearance w eGFR POC Glucometer 128.10329 Random Glucose Hemoglobin A1c % 5.1 Calcium Phosphorus Magnesium Total Bilirubin AST ALT Alkaline Phosphatase Total Protein Albumin Lipase TSH ASSESSMENT AND PLAN: -Acute recurrent pancreatitis -Pancreatic cyst -Morbid obesity Plan: tolerating diet well. refused MRCP. GI input noted. outpatient surgery follow up to discuss elective CCY especialy with recurrent episodes. Informed on 1.8 pancreatic cyst and need for follow up and imaging and risk for infection in future Patient relays understanding and agrees to follow up for the same. Taking solids well with no concerns. d/c home today with outpatient GI and surgery follow up.
--- NOTE | 2017-05-19 08:03 | CONSULT ---
- Consultation REQUESTING PROVIDER: ICU resident CONSULT REQUEST: We have been asked to surgically evaluate this patient for ( specify). PCP:Karmen Vanegas MD HISTORY OF PRESENT ILLNESS: POLA who is a 31 y/o male w/recurrent pancreatitis of ? origin; he has had and currently has undergone a w/u to elucidate the cause; he states he feels better since admission PMHx: none PSHx: none Allergies Allergy/AdvReac Type Severity Reaction Status Date / Time No Known Allergies Allergy Verified 05/17/17 02:50 PHYSICAL EXAM: GENERAL: Awake, alert, and fully oriented, in no acute distress. HEAD: Normal with no signs of trauma. EYES: sclera anicteric, conjunctiva clear. NECK: Normal ROM, supple without lymphadenopathy, JVD, or masses. ABDOMEN: Soft, obese, nontender, not distended, normoactive bowel sounds, no guarding, no rebound, no masses. No organomegaly. No hernias MUSCULOSKELETAL: Normal ROM at all joints. No bony deformities or tenderness. No CVA tenderness. UPPER EXTREMITIES: 2+ pulses, warm, well-perfused. No cyanosis. Cap refill <2 seconds. No peripheral edema. LOWER EXTREMITIES: 2+ pulses, warm, well-perfused. No calf tenderness. No peripheral edema. NEUROLOGICAL: Normal speech, gait not observed. PSYCH: Cooperative. Good eye contact. Appropriate mood and affect. SKIN: Warm, dry, normal turgor, no rashes or lesions noted. Vital Signs Temperature 98.4 F 05/18/17 10:00 Pulse Rate 66 05/18/17 12:00 Respiratory Rate 20 05/18/17 12:00 Blood Pressure 96/51 05/18/17 12:00 O2 Sat by Pulse Oximetry (%) 98 05/18/17 07:34 Lab Results WBC 6.2 K/mm3 (4.0-10.0) 05/18/17 05:25 RBC 4.65 M/mm3 (4.00-5.60) 05/18/17 05:25 Hgb 13.6 GM/dL (11.7-16.9) D 05/18/17 05:25 Hct 40.2 % (35.4-49) 05/18/17 05:25 MCV 86.6 fl (80-96) 05/18/17 05:25 MCHC 33.7 g/dl (32.0-35.9) 05/18/17 05:25 RDW 12.8 % (11.9-15.9) 05/18/17 05:25 Plt Count 243 K/MM3 (134-434) 05/18/17 05:25 Sodium 141 mmol/L (136-145) 05/18/17 05:25 Potassium 4.1 mmol/L (3.5-5.1) 05/18/17 05:25 Chloride 106 mmol/L (98-107) 05/18/17 05:25 Carbon Dioxide 27 mmol/L (21-32) 05/18/17 05:25 Anion Gap 8 (8-16) 05/18/17 05:25 BUN 6 mg/dL (7-18) L D 05/18/17 05:25 Creatinine 0.8 mg/dL (0.7-1.3) D 05/18/17 05:25 Random Glucose 102 mg/dL (74-106) 05/18/17 05:25 Calcium 7.7 mg/dL (8.5-10.1) L 05/18/17 05:25 INR 1.12 (0.82-1.09) 05/18/17 05:25 w/u to date reviewed; previous admission and w/u reviewed. IMP: pancreatitis PLAN: I do not believe he is a candidate for laparoscopic cholecystectomy; he should continue to be worked up and other opinions sought.. Armando George MD FACS Visit type - Case Type Case Type: ED Admission - Emergency Emergency Visit: Yes ED Registration Date: 05/17/17 Care time: The patient presented to the Emergency Department on the above date and was hospitalized for further evaluation of their emergent condition. - New patient This patient is new to me today: Yes Date on this admission: 05/19/17 - Critical Care Critical Care patient: No
== END 2017-05-18 18:51 | disposition home or self-care (01) | DRG 282 ==
LOC: FER 02:49 → JICU 09:10
PROVIDERS: ADMIT Internal Medicine; ATTEND Hospitalist
DX: K85.90 Acute pancreatitis without necrosis or infection, unspecified (principal); I95.9 Hypotension, unspecified; E66.01 Morbid (severe) obesity due to excess calories; Z68.42 Body mass index [BMI] 45.0-49.9, adult; E86.1 Hypovolemia; K86.2 Cyst of pancreas; R16.1 Splenomegaly, not elsewhere classified
CPT/HCPCS: 36415; 71045-TC-FY; 74177-TC; 76705-TC; 80053; 80061; 80307; 81003; 82150; 82787; 82962; 83036; 83615; 83690; 83721; 83735; 84100; 84443; 85025; 85610; 85730; 86038; 93005; 99283-25; J1644

== ENCOUNTER 2017-05-22 01:08 | Inpatient (IN) | payer OTHER ==
--- NOTE | 2017-05-22 01:13 | PDOC ---
History of Present Illness - General Chief Complaint: Pain Stated Complaint: PANCREATITIS Time Seen by Provider: 05/22/17 01:12 History Source: Patient Exam Limitations: No Limitations - History of Present Illness Initial Comments: 05/22/17 01:30 This is a 31-year-old male who comes in complaining of acute pancreatitis. Patient was just discharged from this facility for acute pancreatitis about 3 days ago. Patient said since discharge he is gotten progressively worse and now returns. PAST MEDICAL HISTORY: no significant history PAST SURGICAL HISTORY: no significant history FAMILY HISTORY: no pertinant history SOCIAL HISTORY: Pt lives with family and is employed. MEDICATIONS: reviewed ALLERGIES: As per nursing notes Review of Systems General: No fevers or chills, no weakness, no weight loss HEENT: No change in vision. No sore throat,. No ear pain CardioVascular: No chest pain or shortness of breath Respiratory:No cough, or wheezing. Gastrointestinal: + nausea, + vomitting,no diarrhea or constipation, No rectal bleeding,+ abdominal pain Genitourinary: No dysuria, hematuria, or frequency Musculoskeletal: No joint or muscle pain or swelling Neurologic: No headache, vertigo, dizziness or loss of consciousness Psychiatric: nor depression Skin: No rashes or easy bruising Endocrine: no increased thirst or abnormal weight change Allergic: no skin or latex allergy All other systems reviewed and normal Exam: General: Well-nourished well-developed individual, no acute distress HEENT: Throat: Normal, tonsils normal, no erythema or exudate Neck: Supple, no meningeal signs, no lymphadenopathy Eyes::Pupils equal reactive and round, extraocular motion intact Chest: Nontender to palpation Cardiac: S1-S2 normal, regular rate and rhythm, no murmurs rubs or gallops Respiratory: Lungs clear to auscultation bilateral Abdomen: Soft, nondistended, decreased bowel sounds with moderately tender to palpation across the upper abdomen, no guarding or rebound Extremities: Warm, dry, no cyanosis, clubbing, or edema Skin: No rashes Neuro: Alert and oriented x3, CN II - XII intact, nonfocal exam with normal strength, normal sensation, normal reflexes, normal gait, Psych: Normal mood and affect EKG shows normal sinus rhythm at a rate of [address]-T wave changes Chest x-ray no acute pathology Assessment and plan: This is a 31-year-old male who returns after being discharged 3 days ago for pancreatitis. Lipase is markedly elevated at over 5000. Patient will be readmitted to the hospital. 05/22/17 03:43 05/22/17 03:44 Past History - Past Medical History Allergies/Adverse Reactions: Allergies Allergy/AdvReac Type Severity Reaction Status Date / Time No Known Allergies Allergy Verified 05/17/17 02:50 Home Medications: Ambulatory Orders NK [No Known Home Medication] 05/22/17 Anemia: No Asthma: No Cancer: No Cardiac Disorders: No CVA: No COPD: No CHF: No Dementia: No GI Disorders: Yes (PANCREATITIS) Disorders: No HTN: No Hypercholesterolemia: No Liver Disease: No Seizures: No Thyroid Disease: No - Surgical History Abdominal Surgery: No Appendectomy: No Cardiac Surgery: No Cholecystectomy: No Lung Surgery: No Neurologic Surgery: No Orthopedic Surgery: No - Suicide/Smoking/Psychosocial Hx Smoking History: Unknown if ever smoked Have you smoked in the past 12 months: No Number of Cigarettes Smoked Daily: 0 Hx Alcohol Use: No Drug/Substance Use Hx: No Substance Use Type: None Hx Substance Use Treatment: No ED Treatment Course - LABORATORY CBC & Chemistry Diagram: 05/22/17 01:36 05/22/17 01:36 *DC/Admit/Observation/Transfer Diagnosis at time of Disposition: Acute pancreatitis - Discharge Dispostion Condition at time of disposition: Stable Admit: Yes - Referrals Referrals: ON STAFF,NOT [Primary Care Provider] - - Patient Instructions - Post Discharge Activity
[2017-05-22] MEDS ORDERED: HYDROmorphone HCL CARPU-JECT 1 MG/1 ML DISP.SYRIN IVPUSH ONE ×2 (01:20→04:57)
[2017-05-22] MEDS ORDERED: SODIUM CHLORIDE 1,000 ML IV ONE (01:20)
[2017-05-22] MEDS ORDERED: ONDANSETRON 4 MG/2 ML VIAL IVPB ONE (01:38)
[2017-05-22] MEDS ORDERED: ONDANSETRON 4 MG/2 ML VIAL ONE (01:40)
[2017-05-22 02:58] LABS: BASO % 0.5 % (0-2.0); EOS % 4.6 % (0-4.5); HEMOGLOBIN 15.6 GM/dL (11.7-16.9); LYMPH % 31.5 % (8-40); MCH 29.4 pg (25.7-33.7); MCHC 34.6 g/dl (32.0-35.9); MEAN PLT VOLUME 9.2 fl (7.5-11.1); MONO % 7.3 % (3.8-10.2); NEUT % 56.1 % (42.8-82.8); PLATELET COUNT 311 K/MM3 (134-434); RDW 12.9 % (11.9-15.9); WHITE BLOOD COUNT 7.1 K/mm3 (4.0-10.0)
[2017-05-22 03:32] LABS: ALBUMIN 3.9 g/dl (3.4-5.0); ALK PHOS 89 U/L (45-117); ANION GAP 8 (8-16); BILIRUBIN,TOTAL 0.6 mg/dL (0.2-1.0); BLOOD UREA NITROGEN 13 mg/dL (7-18); CALCIUM 8.7 mg/dL (8.5-10.1); CHLORIDE 103 mmol/L (98-107); CO2 27 mmol/L (21-32); CREATININE 0.9 mg/dL (0.7-1.3); GLUCOSE,RANDOM 91 mg/dL (74-106); SGOT/AST 27 U/L (15-37); SGPT/ALT 50 U/L (12-78); SODIUM 138 mmol/L (136-145); TOT PROT 7.7 g/dl (6.4-8.2)
[2017-05-22 03:33] LABS: LIPASE 5254 U/L (73-393)
[2017-05-22] MEDS ORDERED: MORPHINE SULFATE 10 MG/1 ML *VIAL IVPUSH PRN (04:26)
[2017-05-22] MEDS ORDERED: LACTATED RINGERS SOLUTION 1,000 ML/1,000 ML INFUS.BAG IV SCH (04:30)
[2017-05-22 04:31] VITALS: BMI 41.3
[2017-05-22] MEDS ORDERED: morphine CARPU-JECT 2 MG/1 ML DISP.SYRIN ONE (04:35)
[2017-05-22] MEDS: ONDANSETRON 4 MG/2 ML VIAL IVPUSH PRN ×3 (04:43→17:42)
[2017-05-22] MEDS: HEPARIN NA (PORCINE) 5,000 UNITS/ML 1ML VIAL SQ SCH ×3 (05:32→21:13)
[2017-05-22] MEDS ORDERED: SODIUM CHLORIDE 0.9% 500 ML INFUS.BAG IV ONE ×3 (10:11→13:16)
[2017-05-22] MEDS ORDERED: HYDROmorphone HCL CARPU-JECT 1 MG/1 ML DISP.SYRIN IVPUSH PRN (10:12)
--- NOTE | 2017-05-22 10:21 | HP ---
CHIEF COMPLAINT: This pt as seen and examined this AM in [place]. This is a 31 year old obese male who has a significant history of pancreatitis noted at least 3 times noted in chart. He was recently seen and admitted to [facility] from to 05/19 with an acute episode of hypotension and pancreatitis (lipase >5000). He was in the ICU for treatment and monitoring. His imagings revealed a small pancreatic cyst 1.8 cm . A consult with Cee Andres and Dr. George, Surgery was called. It was planned to have an outpatient work up for autoimmune disorder and possible cholecystectomy when pancreatitis resolves with these two services and no need for acute surgical intervention as this time. He was discharged 05/19 with lipase trending down to 1000 and hemodynamically stable after fluids. Pt now returns 72 hours later to [facility] ER with acute pain in abd , elevated lipase >5000, nausea, vomiting, diarrhea. He is given IVF, NPO and admitted. He maintained a blood pressure that was stable in ER and overnight. As noted: his first episode of pancreatitis was treated in [place]. ER course was notable for: (1) lipase >5000, IVF, NPO (2) pain tx with dilaudid (3) monitored b/p stable Recent Travel: none PAST MEDICAL HISTORY:Pancreatitis, obesity PAST SURGICAL HISTORY: Social History: Gained over 50 lbss over the past few years with poor diet Smoking:denies Alcohol:social, last drink over one month ago Drugs: denies Family History: Allergies No Known Allergies Allergy (Verified 05/17/17 02:50) HOME MEDICATIONS: Home Medications Medication Instructions Recorded NK [No Known Home Medication] 05/22/17 REVIEW OF SYSTEMS CONSTITUTIONAL: Absent: fever, chills, diaphoresis, +generalized weakness, malaise, +loss of appetite, +weight change CARDIOVASCULAR: Absent: chest pain, syncope, palpitations, irregular heart rate, lightheadedness , peripheral edema RESPIRATORY: Absent: cough, shortness of breath, dyspnea with exertion, orthopnea, wheezing, stridor, hemoptysis GASTROINTESTINAL: Absent: +abdominal pain, abdominal distension, +nausea, +vomiting, +diarrhea, constipation, melena, hematochezia GENITOURINARY: Absent: dysuria, frequency, urgency, hesitancy, hematuria, flank pain, genital pain MUSCULOSKELETAL: Absent: myalgia, arthralgia, joint swelling, back pain, neck pain SKIN: Absent: rash, itching, pallor HEMATOLOGIC/IMMUNOLOGIC: Absent: easy bleeding, easy bruising, lymphadenopathy, frequent infections ENDOCRINE: Absent: unexplained weight gain, unexplained weight loss, heat intolerance, cold intolerance NEUROLOGIC: Absent: headache, focal weakness or paresthesias, dizziness, unsteady gait, seizure, mental status changes, bladder or bowel incontinence PSYCHIATRIC: Absent: anxiety, depression, suicidal or homicidal ideation, hallucinations. PHYSICAL EXAMINATION Vital Signs - 24 hr 05/22/17 05/22/17 05/22/17 01:13 04:20 0900 Temperature 98.7 F 98.0 F Pulse Rate 86 80 Respiratory 18 18 Rate Blood Pressure 123/70 113/70 93/54 O2 Sat by Pulse 99 98 98 Oximetry (%) 05/22/17 09:58 Temperature 98.4 F Pulse Rate 73 Respiratory 18 Rate Blood Pressure 93/54 O2 Sat by Pulse Oximetry (%) GENERAL: Awake, alert, and fully oriented, in no acute distress. NECK: Normal range of motion, supple without lymphadenopathy, JVD, or masses. LUNGS: Breath sounds equal, clear to auscultation bilaterally. No wheezes, and no crackles. No accessory muscle use. HEART: Regular rate and rhythm, normal S1 and S2 without murmur, rub or gallop. ABDOMEN: Soft, +tender, not distended, normoactive bowel sounds, + guarding, no rebound, no masses. No hepatomegaly or splenomegaly. MUSCULOSKELETAL: Normal range of motion at all joints. No bony deformities or tenderness. No CVA tenderness. UPPER EXTREMITIES: 2+ pulses, warm, well-perfused. No cyanosis. No clubbing. No peripheral edema. LOWER EXTREMITIES: 2+ pulses, warm, well-perfused. No calf tenderness. No peripheral edema. NEUROLOGICAL: Cranial nerves II-XII intact. Normal speech. Normal gait. PSYCHIATRIC: Cooperative. Good eye contact. Appropriate mood and affect. SKIN: Warm, dry, normal turgor, no rashes or lesions noted, normal capillary refill. Laboratory Results - last 24 hr 05/22/17 05/22/17 01:36 01:36 WBC 7.1 RBC 5.30 Hgb 15.6 D Hct 45.0 MCV 85.0 MCH 29.4 MCHC 34.6 RDW 12.9 Plt Count 311 D MPV 9.2 Neutrophils % 56.1 D Lymphocytes % 31.5 D Monocytes % 7.3 Eosinophils % 4.6 H Basophils % 0.5 Sodium 138 Potassium 4.0 Chloride 103 Carbon Dioxide 27 Anion Gap 8 BUN 13 D Creatinine 0.9 Creat Clearance w eGFR > 60 Random Glucose 91 Calcium 8.7 Total Bilirubin 0.6 AST 27 D ALT 50 D Alkaline Phosphatase 89 D Total Protein 7.7 D Albumin 3.9 D Lipase 5254 H ASSESSMENT/PLAN: This 31 yr old obese male admitted for excerbation of pancreatitis. While completing pt H/P, pt noted to have a drop in blood pressure. -Acute pancreatitis, unclear etiology -Pancreatic cyst -Morbid obesity -hypotension Problem List - Problem (1) Pancreatic cyst Assessment/Plan: - consult with Dr. George surgery - consult with Dr. Mike GI - no signs of acute infectious process, no ABT started - Code(s): K86.2 - CYST OF PANCREAS (2) Nutrition impaired due to imbalance of nutrients Assessment/Plan: - NPO for now -IVF for hydration -monitor FS Code(s): E63.9 - NUTRITIONAL DEFICIENCY, UNSPECIFIED (3) Acute pancreatitis Assessment/Plan: - IVF with boluses -monitor lipase -treat pain with dilaudid -if worsening, pt to be transferred to [facility] -discussed with Dr. Corona of ICU call today re: pt and will attempt 3 boluses of Liter to maintain hemodynaics. -aggressive resuscitation -serial abdominal exams Code(s): K85.90 - ACUTE PANCREATITIS WITHOUT NECROSIS OR INFECTION, UNSP Qualifiers: Pancreatitis type: unspecified pancreatitis type Acute pancreatitis complication: no infection or necrosis Qualified Code(s): K85.90 - Acute pancreatitis without necrosis or infection, unspecified (4) Hypotension Assessment/Plan: -IVF boluses -close monitor of blood pressure -if no change, or becomes unstable will transfer to [facility] Pt received 2 Liter bolus over 2 hours without major improvement of blood pressure. continues with b/p <100 sbp 98/52 and now on 3rd liter bag. will transfer to [facility] on a telemetry bed and if any deterioration will transfer to ICU. This plan discussed with Dr. Corona and Dr. Robyn Garzon, hospitalist. Code(s): I95.9 - HYPOTENSION, UNSPECIFIED Qualifiers: Hypotension type: unspecified hypotension type Qualified Code(s): I95.9 - Hypotension, unspecified Visit type - Emergency Visit Emergency Visit: Yes ED Registration Date: 05/22/17 Care time: The patient presented to the Emergency Department on the above date and was hospitalized for further evaluation of their emergent condition. - New Patient This patient is new to me today: Yes Date on this admission: 05/25/17 - Critical Care Critical Care patient: Yes Total Critical Care Time (in minutes): 60 Critical Care Statement: The care of this patient involved high complexity decision making to prevent further life threatening deterioration of the patient 's condition and/or to evaluate & treat vital organ system(s) failure or risk of failure. Hospitalist Screening - Colonoscopy Questionnaire Colonoscopy Questionnaire: Colonoscopy Questionnaire - Patient: 50 - 75 years old and never had a screening colonoscopy: No History of colon or rectal polyps, or CA: No History of IBD, Crohn's disease or UC: No History of abdominal radiation therapy as a child: No - Relative: 1 with colon or rectal CA, or polyps at age 60 or younger: No Colon or rectal CA diagnosed at age 45 or younger: No Multiple relatives with colon or rectal CA: No - Outcome: Screening Result: Negative Screen
[2017-05-22 12:30] LABS: PH,URINE 5.5 (4.5-8); URINE APPEARANCE Clear; URINE BILIRUBIN 1+ (NEGATIVE); URINE BLOOD Negative (NEGATIVE); URINE GLUCOSE (UA) Negative (NEGATIVE); URINE KETONE Negative (NEGATIVE); URINE LEUK ESTERASE Negative (NEGATIVE); URINE NITRITE Negative (NEGATIVE); URINE PROTEIN Negative (NEGATIVE); URINE UROBILINOGEN 0.2 (0.2-1.0)
[2017-05-22 12:32] LABS: URINE COLOR YELLOW
[2017-05-22] MEDS: HYDROmorphone HCL CARPU-JECT 1 MG/1 ML DISP.SYRIN IVPUSH PRN (13:30)
[2017-05-22] MEDS: DEXTROSE 5%-NORMAL SALINE 1,000 ML IV SCH (14:30)
--- NOTE | 2017-05-22 18:54 | CON.GI ---
Consult Consult Specialty:: GI - History of Present Illness History of Present Illness: Chart reviewed. Recently discharged from [facility] where he was treated for 3rd episode of acute pancreatitis in the past 1.5 years. IGG4 negative, no obvious risk factors. Pt reports residual, postprandial epigastric pain since discharge. The pain became worse which led him to seek reevaluation at ED. He was found to have elevated lipase. He had an episode of hypotension while being admitted. This has resolved. No fever, chils, jaundice, melena, hematochezia, weight loss. Denies, RUQ pain, alcohol, ill contacts, chronic NSAIDs. At the time of this encounter, not in distress and appears comfortable. - History Source History Provided By: Patient, Medical Record - Alcohol/Substance Use Hx Alcohol Use: No - Smoking History Smoking history: Unknown if ever smoked Have you smoked in the past 12 months: No Aproximately how many cigarettes per day: 0 Home Medications - Allergies Allergies/Adverse Reactions: Allergies Allergy/AdvReac Type Severity Reaction Status Date / Time No Known Allergies Allergy Verified 05/17/17 02:50 - Home Medications Home Medications: Ambulatory Orders NK [No Known Home Medication] 05/22/17 Family Disease History - Family Disease History Family History: Unremarkable Review of Systems Findings/Remarks: as per HPI,. H&P Physical Exam-GI Vital Signs: Vital Signs Temperature 98.2 F 05/22/17 18:04 Pulse Rate 74 05/22/17 18:04 Respiratory Rate 19 05/22/17 18:04 Blood Pressure 110/54 05/22/17 18:04 O2 Sat by Pulse Oximetry (%) 99 05/22/17 16:21 Constitutional: Yes: Well Nourished, No Distress, Calm, Obese Eyes: Yes: Conjunctiva Clear. No: Sclera Icterus HENT: Yes: Atraumatic Neck: Yes: Supple Cardiovascular: Yes: Regular Rate and Rhythm Respiratory: Yes: Regular Gastrointestinal Inspection: No: Ascites, Distention ...Auscultate: Yes: Normoactive Bowel Sounds ...Palpate: Yes: Tenderness, Epigastium. No: Tenderness, Rebound Edema: No Neurological: Yes: Alert, Oriented Labs: CBC, BMP 05/22/17 01:36 05/22/17 01:36 Laboratory Tests 05/22/17 05/22/17 05/22/17 01:36 01:36 12:19 WBC 7.1 RBC 5.30 Hgb 15.6 D Hct 45.0 MCV 85.0 MCH 29.4 MCHC 34.6 RDW 12.9 Plt Count 311 D MPV 9.2 Neutrophils % 56.1 D Lymphocytes % 31.5 D Monocytes % 7.3 Eosinophils % 4.6 H Basophils % 0.5 Sodium 138 Potassium 4.0 Chloride 103 Carbon Dioxide 27 Anion Gap 8 BUN 13 D Creatinine 0.9 Creat Clearance w eGFR > 60 POC Glucometer Random Glucose 91 Calcium 8.7 Total Bilirubin 0.6 AST 27 D ALT 50 D Alkaline Phosphatase 89 D Total Protein 7.7 D Albumin 3.9 D Lipase 5254 H Urine Color Yellow Urine Appearance Clear Urine pH 5.5 Ur Specific Tea >= 1.030 H Urine Protein Negative Urine Glucose (UA) Negative Urine Ketones Negative Urine Blood Negative Urine Nitrite Negative Urine Bilirubin 1+ H Urine Urobilinogen 0.2 Ur Leukocyte Esterase Negative 05/22/17 05/22/17 12:28 16:37 WBC RBC Hgb Hct MCV MCH MCHC RDW Plt Count MPV Neutrophils % Lymphocytes % Monocytes % Eosinophils % Basophils % Sodium Potassium Chloride Carbon Dioxide Anion Gap BUN Creatinine Creat Clearance w eGFR POC Glucometer 80 110 Random Glucose Calcium Total Bilirubin AST ALT Alkaline Phosphatase Total Protein Albumin Lipase Urine Color Urine Appearance Urine pH Ur Specific Tea Urine Protein Urine Glucose (UA) Urine Ketones Urine Blood Urine Nitrite Urine Bilirubin Urine Urobilinogen Ur Leukocyte Esterase Problem List - Problems (1) Acute pancreatitis Code(s): K85.90 - ACUTE PANCREATITIS WITHOUT NECROSIS OR INFECTION, UNSP Qualifiers: Pancreatitis type: unspecified pancreatitis type Acute pancreatitis complication: no infection or necrosis Qualified Code(s): K85.90 - Acute pancreatitis without necrosis or infection, unspecified (2) Pancreatic cyst Code(s): K86.2 - CYST OF PANCREAS (3) Biliary acute pancreatitis Code(s): K85.10 - BILIARY ACUTE PANCREATITIS WITHOUT NECROSIS OR INFECTION Assessment/Plan recurrent, acute pancreatitis w/o obvious red flags, or risk factors. ?microlithiasis, ?pancrease divisium. ?other Agree with aggressive IV hydration, antiemetic and pain rx PRN Will order MR/MRCP w and w/o. NPO Viral, Autoimmune, celiac profiles GGT EGD after MRI
[2017-05-23] MEDS: HEPARIN NA (PORCINE) 5,000 UNITS/ML 1ML VIAL SQ SCH ×4 (06:21→21:39)
[2017-05-23 07:50] LABS: BASO % 1.2 % (0-2.0); EOS % 7.3 % (0-4.5); HEMATOCRIT 40.4 % (35.4-49); HEMOGLOBIN 13.7 GM/dl (11.7-16.9); MCH 28.8 pg (25.7-33.7); MCHC 33.9 g/dl (32.0-35.9); MEAN CELL VOLUME 84.9 fl (80-96); MEAN PLT VOLUME 8.5 fl (7.5-11.1); MONO % 6.1 % (3.8-10.2); NEUT % 36.4 % (42.8-82.8); PLATELET COUNT 267 K/MM3 (134-434); RBC 4.76 M/mm3 (4.00-5.60); RDW 11.5 % (11.9-15.9); WHITE BLOOD COUNT 4.8 K/mm3 (4.0-10.8)
[2017-05-23 08:43] LABS: ALK PHOS 57 U/L (32-92); ANION GAP 4 (8-16); BILIRUBIN,TOTAL 0.6 mg/dl (0.2-1.0); CALCIUM 8.4 mg/dl (8.4-10.2); CHLORIDE 108 mmol/L (98-107); CO2 27 mmol/L (22-28); CREATININE 0.9 mg/dl (0.6-1.3); GLUCOSE,RANDOM 109 mg/dl (74-106); MAGNESIUM 1.8 mg/dL (1.8-2.4); PHOSPHOROUS 2.8 mg/dl (2.5-4.6); POTASSIUM 3.7 mmol/L (3.5-5.1); SGOT/AST 21 U/L (10-42); SGPT/ALT 31 U/L (10-40); SODIUM 139 mmol/L (136-145); TOT PROT 5.9 g/dl (6.4-8.3)
[2017-05-23 08:49] LABS: BLOOD UREA NITROGEN < 6 mg/dl (7-18)
[2017-05-23 09:46] LABS: ALBUMIN 3.1 g/dl (3.5-5.0); BILIRUBIN,TOTAL 0.7 mg/dl (0.2-1.0); TOT PROT 5.9 g/dl (6.4-8.3)
[2017-05-23] MEDS ORDERED: diazePAM 5 MG TABLET PO ONE (12:00)
--- NOTE | 2017-05-23 13:44 | PN ---
Physical Exam: SUBJECTIVE: Patient seen and examined, reports feeling well, denies any abdominal pain and fever, pending MRI of abdomen OBJECTIVE: Patient is a 31 y/o male with a past medical history of re-accurent pancreatitis (twice in the past year), patient was admitted from the emergency department for re-accurent pancreatitis. Vital Signs Period Temp Pulse Resp BP Sys/Schwartz Pulse Ox Last 24 Hr 97.9 F-98.8 F 62-79 18-20 95-127/53-63 98-100 GENERAL: Awake, alert, and fully oriented, in no acute distress. NECK: Normal range of motion, supple without lymphadenopathy, JVD, or masses. LUNGS: Breath sounds equal, clear to auscultation bilaterally. No wheezes, and no crackles. No accessory muscle use. HEART: Regular rate and rhythm, normal S1 and S2 without murmur, rub or gallop. ABDOMEN: Soft, non-tender, not distended, normoactive bowel sounds, no guarding , no rebound, no masses. No hepatomegaly or splenomegaly. MUSCULOSKELETAL: Normal range of motion at all joints. No bony deformities or tenderness. No CVA tenderness. UPPER EXTREMITIES: 2+ pulses, warm, well-perfused. No cyanosis. No clubbing. No peripheral edema. LOWER EXTREMITIES: 2+ pulses, warm, well-perfused. No calf tenderness. No peripheral edema. NEUROLOGICAL: Cranial nerves II-XII intact. Normal speech. Normal gait. PSYCHIATRIC: Cooperative. Good eye contact. Appropriate mood and affect. SKIN: Warm, dry, normal turgor, no rashes or lesions noted, normal capillary refill. Laboratory Results - last 24 hr 05/22/17 05/22/17 05/23/17 16:37 21:51 06:23 WBC RBC Hgb Hct MCV MCH MCHC RDW Plt Count MPV Neutrophils % Lymphocytes % Monocytes % Eosinophils % Basophils % Sodium Potassium Chloride Carbon Dioxide Anion Gap BUN Creatinine Creat Clearance w eGFR POC Glucometer 110 118 100 Random Glucose Calcium Phosphorus Magnesium Total Bilirubin GGT AST ALT Alkaline Phosphatase Total Protein Albumin Total Amylase 05/23/17 05/23/17 05/23/17 07:15 07:15 07:15 WBC 4.8 RBC 4.76 Hgb 13.7 Hct 40.4 MCV 84.9 MCH 28.8 MCHC 33.9 RDW 11.5 L Plt Count 267 MPV 8.5 Neutrophils % 36.4 L D Lymphocytes % 49.0 H D Monocytes % 6.1 Eosinophils % 7.3 H Basophils % 1.2 D Sodium 139 Potassium 3.7 Chloride 108 H Carbon Dioxide 27 Anion Gap 4 L BUN < 6 L D Creatinine 0.9 D Creat Clearance w eGFR > 60 POC Glucometer Random Glucose 109 H Calcium 8.4 Phosphorus 2.8 Magnesium 1.8 Total Bilirubin 0.6 D 0.7 GGT AST 21 20 ALT 31 D 29 Alkaline Phosphatase 57 55 Total Protein 5.9 L 5.9 L Albumin 3.0 L 3.1 L Total Amylase 71 D 05/23/17 07:15 WBC RBC Hgb Hct MCV MCH MCHC RDW Plt Count MPV Neutrophils % Lymphocytes % Monocytes % Eosinophils % Basophils % Sodium Potassium Chloride Carbon Dioxide Anion Gap BUN Creatinine Creat Clearance w eGFR POC Glucometer Random Glucose Calcium Phosphorus Magnesium Total Bilirubin GGT 27 AST ALT Alkaline Phosphatase Total Protein Albumin Total Amylase Active Medications Generic Name Dose Route Start Last Admin Trade Name Freq PRN Reason Stop Dose Admin Heparin Sodium (Porcine) 5,000 unit 05/22/17 06:00 05/23/17 06:31 Heparin - SQ Not Given TID AMELIE Hydromorphone HCl 0.5 mg 05/22/17 13:17 05/22/17 13:30 Dilaudid Injection - IVPUSH 0.5 mg Q4H PRN Administration PAIN LEVEL 7 - 10 Lactated Ringer's 1,000 ml in 1,000 mls @ 125 mls/hr 05/22/17 04:30 05/22/17 04:41 Lactated Ringers Solution IV 125 mls/hr ASDIR AMELIE Administration Dextrose/Sodium Chloride 1,000 mls @ 200 mls/hr 05/22/17 14:15 05/22/17 14:30 D5-Ns - IV 200 mls/hr ASDIR AMELIE Administration Ondansetron HCl 4 mg 05/22/17 04:30 05/22/17 17:42 Zofran Injection IVPUSH 4 mg Q6H PRN Administration NAUSEA AND/OR VOMITING IMAGING Chest xray: no acute pathology ASSESSMENT/PLAN: (1)GI acute pancreatitis Pancreatic cyst - pending MRCP/mri of abd today, ct of abd/pelvis reviewed from 05/17/17, notable for reacurrent pancreatitis and pancreatic cyst - continue npo status - pending AM amylase/lipase - continue prn pain medication - Dr Mike, GI consulted and following 2) cardiovascular Hypotension, resolved -close monitor of blood pressure, q4h f/e/n - npo-->ivf - replete lytes prn ppx - oob - scd - protonix dispo: pt requies inpatient admission
[2017-05-23 14:23] LABS: BILIRUBIN,DIRECT 0.2 mg/dL (0.0-0.2)
[2017-05-23] MEDS: HYDROmorphone HCL CARPU-JECT 1 MG/1 ML DISP.SYRIN IVPUSH PRN (14:44)
--- NOTE | 2017-05-23 14:46 | EKG ---
Test Reason : Blood Pressure : / mmHG Vent. Rate : 074 BPM Atrial Rate : 074 BPM P-R Int : 136 ms QRS Dur : 086 ms QT Int : 378 ms P-R-T Axes : 064 002 -01 degrees QTc Int : 419 ms POOR DATA QUALITY, INTERPRETATION MAY BE ADVERSELY AFFECTED NORMAL SINUS RHYTHM NORMAL ECG WHEN COMPARED WITH ECG OF 17-MAY-2017 06:39, NO SIGNIFICANT CHANGE WAS FOUND Confirmed by MANISH BROWN MD ([id number]) on 05/23/2017 2:46:20 PM Referred By: MD TOLLIVER Confirmed By:MANISH BROWN MD
[2017-05-23] MEDS: DEXTROSE 5%-NORMAL SALINE 1,000 ML IV SCH (15:58)
--- NOTE | 2017-05-23 18:49 | PN ---
Progress Note (short form) - Note Progress Note: MR results noted. MRI with contrast order was cancelled/not done for unclear reason so the study is limited Lipase noted Required one dose of main post MRI Full liquid, fat-free diet tonight Needs abdominal MRI with contrast and outpatient EGD Problem List - Problems (1) Acute pancreatitis Code(s): K85.90 - ACUTE PANCREATITIS WITHOUT NECROSIS OR INFECTION, UNSP Qualifiers: Pancreatitis type: unspecified pancreatitis type Acute pancreatitis complication: no infection or necrosis Qualified Code(s): K85.90 - Acute pancreatitis without necrosis or infection, unspecified (2) Pancreatic cyst Code(s): K86.2 - CYST OF PANCREAS (3) Biliary acute pancreatitis Code(s): K85.10 - BILIARY ACUTE PANCREATITIS WITHOUT NECROSIS OR INFECTION
[2017-05-24] MEDS: HEPARIN NA (PORCINE) 5,000 UNITS/ML 1ML VIAL SQ SCH ×3 (06:15→21:49)
[2017-05-24 08:44] LABS: BASO % 0.7 % (0-2.0); HEMATOCRIT 42.9 % (35.4-49); HEMOGLOBIN 14.9 GM/dl (11.7-16.9); LYMPH % 49.6 % (8-40); MCH 29.4 pg (25.7-33.7); MCHC 34.9 g/dl (32.0-35.9); MEAN CELL VOLUME 84.2 fl (80-96); MEAN PLT VOLUME 8.8 fl (7.5-11.1); MONO % 4.4 % (3.8-10.2); NEUT % 38.3 % (42.8-82.8); PLATELET COUNT 295 K/MM3 (134-434); RBC 5.09 M/mm3 (4.00-5.60); RDW 11.4 % (11.9-15.9); WHITE BLOOD COUNT 5.3 K/mm3 (4.0-10.8)
[2017-05-24 08:52] LABS: ALBUMIN 3.4 g/dl (3.5-5.0); ALK PHOS 63 U/L (32-92); AMYLASE 54 U/L (25-125); ANION GAP 4 (8-16); BILIRUBIN,TOTAL 0.7 mg/dl (0.2-1.0); CALCIUM 8.8 mg/dl (8.4-10.2); CHLORIDE 105 mmol/L (98-107); CO2 28 mmol/L (22-28); CREATININE 0.9 mg/dl (0.6-1.3); GLUCOSE,RANDOM 87 mg/dl (74-106); POTASSIUM 3.8 mmol/L (3.5-5.1); SGOT/AST 26 U/L (10-42); SGPT/ALT 38 U/L (10-40); SODIUM 137 mmol/L (136-145); TOT PROT 6.4 g/dl (6.4-8.3)
[2017-05-24 08:59] LABS: CHOLESTEROL 130 mg/dl; HDL CHOLESTEROL 33 mg/dl (29-89); LDL CHOLESTEROL (ONLY DFH) 81 mg/dl; TRIGLYCERIDES 79 mg/dl (35-160)
[2017-05-24 09:19] LABS: BLOOD UREA NITROGEN < 6 mg/dl (7-18)
[2017-05-24 10:56] LABS: LIPASE 200 U/L (73-393)
--- NOTE | 2017-05-24 13:30 | PN ---
Physical Exam: SUBJECTIVE: Patient seen and examined, reports feeling hungry, denies any abdominal pain or nausea, tolerating clear liquid tray. 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 Vital Signs Period Temp Pulse Resp BP Sys/Schwartz Pulse Ox Last 24 Hr 97.9 F-98.8 F 53-73 17-18 102-105/59-64 98-98 GENERAL: The patient is obese, awake, alert, and fully oriented, in no acute distress. HEAD: Normal with no signs of trauma. EYES: PERRL, extraocular movements intact, sclera anicteric, conjunctiva clear. No ptosis. ENT: Ears normal, nares patent, oropharynx clear without exudates, moist mucous membranes. NECK: Trachea midline, full range of motion, supple. LUNGS: Breath sounds equal, clear to auscultation bilaterally, no wheezes, no crackles, no accessory muscle use. HEART: Regular rate and rhythm, S1, S2 without murmur, rub or gallop. ABDOMEN: Soft, nontender, nondistended, normoactive bowel sounds, no guarding, no rebound, no hepatosplenomegaly, no masses. EXTREMITIES: 2+ pulses, warm, well-perfused, no edema. NEUROLOGICAL: Cranial nerves II through XII grossly intact. Normal speech, gait not observed. PSYCH: Normal mood, normal affect. SKIN: Warm, dry, normal turgor, no rashes or lesions noted Laboratory Results - last 24 hr 05/23/17 05/24/17 05/24/17 07:15 06:32 07:50 WBC 5.3 RBC 5.09 Hgb 14.9 Hct 42.9 MCV 84.2 MCH 29.4 MCHC 34.9 RDW 11.4 L Plt Count 295 MPV 8.8 Neutrophils % 38.3 L Lymphocytes % 49.6 H Monocytes % 4.4 Eosinophils % 7.0 H Basophils % 0.7 Sodium Potassium Chloride Carbon Dioxide Anion Gap BUN Creatinine Creat Clearance w eGFR POC Glucometer 88 Random Glucose Calcium Total Bilirubin Direct Bilirubin 0.2 AST ALT Alkaline Phosphatase Total Protein Albumin Triglycerides Cholesterol Total LDL Cholesterol HDL Cholesterol Total Amylase Lipase 308 05/24/17 05/24/17 07:50 07:50 WBC RBC Hgb Hct MCV MCH MCHC RDW Plt Count MPV Neutrophils % Lymphocytes % Monocytes % Eosinophils % Basophils % Sodium 137 Potassium 3.8 Chloride 105 Carbon Dioxide 28 Anion Gap 4 L BUN < 6 L Creatinine 0.9 Creat Clearance w eGFR > 60 POC Glucometer Random Glucose 87 D Calcium 8.8 Total Bilirubin 0.7 Direct Bilirubin AST 26 D ALT 38 D Alkaline Phosphatase 63 Total Protein 6.4 Albumin 3.4 L Triglycerides 79 Cholesterol 130 Total LDL Cholesterol 81 HDL Cholesterol 33 D Total Amylase 54 D Lipase 200 Active Medications Generic Name Dose Route Start Last Admin Trade Name Freq PRN Reason Stop Dose Admin Heparin Sodium (Porcine) 5,000 unit 05/22/17 06:00 05/24/17 06:15 Heparin - SQ Not Given TID AMELIE Hydromorphone HCl 0.5 mg 05/22/17 13:17 05/23/17 14:44 Dilaudid Injection - IVPUSH 0.5 mg Q4H PRN Administration PAIN LEVEL 7 - 10 Dextrose/Sodium Chloride 1,000 mls @ 200 mls/hr 05/22/17 14:15 05/23/17 15:58 D5-Ns - IV 200 mls/hr ASDIR AMELIE Administration Ondansetron HCl 4 mg 05/22/17 04:30 05/22/17 17:42 Zofran Injection IVPUSH 4 mg Q6H PRN Administration NAUSEA AND/OR VOMITING IMAGING Chest xray: no acute pathology mrcp of abd: no evidence of cholelithasis, pancreaticobillary ductal dilation, no evidence of collection ASSESSMENT/PLAN: (1)GI acute pancreatitis Pancreatic cyst - amylase/lipase WNL, advance diet as tolerated - pt will require outpatient follow up with GI for MRI with contrast - Dr Mike, GI consulted and following 2) cardiovascular Hypotension, resolved -close monitor of blood pressure, q4h f/e/n - regurlar diet - replete lytes prn ppx - oob - scd - protonix dispo: pt requies inpatient admission
[2017-05-24 22:22] VITALS: TEMP 98.5
[2017-05-24 22:23] VITALS: BP 123/65; PULSE 67
--- NOTE | 2017-05-25 09:44 | DS ---
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 This is a 31 year old obese male who has a significant history of pancreatitis noted at least 3 times noted in chart. He was recently seen and admitted to [facility] from to 05/19 with an acute episode of hypotension and pancreatitis (lipase >5000). He was in the ICU for treatment and monitoring. His imagings revealed a small pancreatic cyst 1.8 cm . A consult with [facility] and Dr. George, Surgery was called. It was planned to have an outpatient work up for autoimmune disorder and possible cholecystectomy when pancreatitis resolves with these two services and no need for acute surgical intervention as this time. He was discharged 05/19 with lipase trending down to 1000 and hemodynamically stable after fluids. Pt now returns 72 hours later to [facility] ER with acute pain in abd , elevated lipase >5000, nausea, vomiting, diarrhea. He is given IVF, NPO and admitted. He maintained a blood pressure that was stable in ER and overnight. As noted: his first episode of pancreatitis was treated in [place]. ER course was notable for: (1) lipase >5000, IVF, NPO (2) pain tx with dilaudid (3) monitored b/p stable Vital Signs Period Temp Pulse Resp BP Sys/Schwartz Pulse Ox Last 24 Hr 98.5 F-98.8 F 56-86 16-21 117-123/65-75 98-99 PHYSICAL EXAM not performed, patient left hospital prior to discharge summary LABS Laboratory Results - last 24 hr 05/24/17 07:50 Lipase 200 Chest xray: no acute pathology mrcp of abd: no evidence of cholelithasis, pancreaticobillary ductal dilation, no evidence of collection HOSPITAL COURSE: (1)GI acute pancreatitis Pancreatic cyst - amylase/lipase WNL, advance diet as tolerated - pt will require outpatient follow up with GI for MRI with contrast - Dr Mike, GI consulted and following 2) cardiovascular Hypotension, resolved -close monitor of blood pressure, q4h Note: The patient insists on leaving the Hospital and is signing out against medical advice. Care being refused: The patient understands the risks and complications that may result from the refusal of medical care which may include and permanent disability. The patient has the mental capacity of understanding the risks of refusing care and is capable of making an informed decision. The patient was instructed to return to the Emergency Department should he/she change his/her mind regarding medical care or should his condition worsen. The patient signed the Against Medical Advice form. Date of Admission:05/22/17 Date of Discharge: 05/25/17 Minutes to complete discharge: 45 Discharge Summary Reason For Visit: PANCREATITIS Current Active Problems Acute pancreatitis (Acute) Nutrition impaired due to imbalance of nutrients (Acute) Pancreatic cyst (Acute) Condition: Stable - Instructions Referrals: ON STAFF,NOT [Primary Care Provider] - - Home Medications Comprehensive Discharge Medication List: Ambulatory Orders NK [No Known Home Medication] 05/22/17 This patient is new to me today: No Emergency Visit: Yes ED Registration Date: 05/22/17 Care time: The patient presented to the Emergency Department on the above date and was hospitalized for further evaluation of their emergent condition. Critical Care patient: No - Discharge Referral Referred to [facility] No
== END 2017-05-24 10:30 | disposition left against medical advice (07) | DRG 282 ==
LOC: FER 01:08 → FM/S 03:59
PROVIDERS: ADMIT Internal Medicine; ATTEND Nurse Practitioner Family
DX: K85.90 Acute pancreatitis without necrosis or infection, unspecified (principal); K85.10 Biliary acute pancreatitis without necrosis or infection; K86.2 Cyst of pancreas; E66.01 Morbid (severe) obesity due to excess calories; Z68.41 Body mass index [BMI] 40.0-44.9, adult; E63.9 Nutritional deficiency, unspecified; I95.9 Hypotension, unspecified
CPT/HCPCS: 36415; 71045-TC-FY; 74181-TC; 80048; 80053; 80061; 80076; 81003; 82150; 82962; 82977; 83516; 83690; 83735; 84100; 85025; 86038; 86301; 86645; 86704; 86706; 86708; 87340; 93005; 99283-25; J1644; J7030